=== PATIENT | female | born 1945 | race Caucasian/White ===

== ENCOUNTER 2018-12-27 15:48 | Observation (INO) | payer MEDICARE ==
[~2018-12-27] VITALS: Ht 180.3 cm; Wt 72.7 kg
[2018-12-27 16:57] LABS: BASOPHILS % 0.3 % (0.0-1.0); EOSINOPHILS % 0.4 % (0.0-6.0); LYMPHOCYTES # (AUTO) 1.4 (1.0-3.2); LYMPHOCYTES % 12.7 % (18.0-39.1); MEAN CORPUSCULAR HEMOGLOBIN 35.8 pg (28-32); MEAN CORPUSCULAR HGB CONC 29.5 g/dL (31-35); MEAN CORPUSCULAR VOLUME 121.2 fL (81-99); MONOCYTES # (AUTO) 0.7 (0.2-0.8); MONOCYTES % 6.2 % (4.4-11.3); NEUTROPHILS # (AUTO) 8.4 (2.1-6.9); NEUTROPHILS % 79.6 % (38.7-80.0); PLATELET COUNT 371 x10e3/uL (140-360); RED BLOOD COUNT 1.65 x10e6/uL (3.6-5.1); RED CELL DISTRIBUTION WIDTH 16.1 % (11.7-14.4)
[2018-12-27 17:00] LABS: HEMOGLOBIN 5.9 g/dL (12.0-16.0)
[2018-12-27 17:09] LABS: INR 0.98; PARTIAL THROMBOPLASTIN TIME 26.9 seconds (23.8-35.5); PROTHROMBIN TIME 13.5 seconds (11.9-14.5)
[2018-12-27] MEDS ORDERED: SODIUM CHLORIDE 0.9% 250ML 250 ML IV ONE (17:15)
[2018-12-27 17:18] LABS: BILIRUBIN,URINE NEGATIVE (NEGATIVE); CLARITY,URINE CLEAR (CLEAR); COLOR,URINE YELLOW (YELLOW); KETONES,URINE NEGATIVE (NEGATIVE); LEUKOCYTE ESTERASE ,URINE TRACE (NEGATIVE); NITRITE,URINE POSITIVE (NEGATIVE); PROTEIN,URINE DIPSTICK NEGATIVE (NEGATIVE); URINE UROBILINOGEN 0.2 mg/dL (0.2 - 1)
[2018-12-27 17:18] LABS: ALANINE AMINOTRANSFERASE 12 IU/L (0-55); ALBUMIN 2.9 g/dL (3.5-5.0); ALBUMIN/GLOBULIN RATIO 1.1 (0.8-2.0); ALKALINE PHOSPHATASE 35 IU/L (40-150); ANION GAP 11.3 mmol/L (8-16); BLOOD UREA NITROGEN 21 mg/dL (7-26); BUN/CREATININE RATIO 26 (6-25); CALCIUM 8.6 mg/dL (8.4-10.2); CARBON DIOXIDE 24 mmol/L (22-29); CHLORIDE 108 mmol/L (98-107); CREATININE, SERUM 0.82 mg/dL (0.57-1.11); EST GLOMERULAR FILTRATION RATE > 60 ML/MIN (60-); GLUCOSE 128 mg/dL (74-118); POTASSIUM 4.3 mmol/L (3.5-5.1); SODIUM 139 mmol/L (136-145)
[2018-12-27 17:35] LABS: BACTERIA,URINE MANY /HPF; EPITHELIAL CELLS,URINE FEW /LPF; WBC,URINE (MAN) 0-5 /HPF (0-5)
[2018-12-27 17:36] LABS: CREATINE KINASE MB 3.3 ng/mL (0-5.0)
--- NOTE | 2018-12-27 18:30 | NUR ---
pt signed consent for blood transfusion
[2018-12-27] MEDS: PANTOPRAZOLE INJ 40 MG in SODIUM CHLORIDE 0.9% 50ML 50 ML IV SCH ×2 (18:54→23:53)
[2018-12-27] MEDS: SODIUM CHLORIDE 0.9% 1000ML 1,000 ML IV SCH (18:54)
[2018-12-27] MEDS ORDERED: SODIUM CHLORIDE 0.9% 250ML 250 ML ONE (20:21)
[2018-12-27] MEDS ORDERED: FERROUS SULFAT325 MG PO (20:52)
[2018-12-27] MEDS ORDERED: SIMVASTATIN20 MG PO (20:52)
[2018-12-27] MEDS ORDERED: VITAMIN D31000 UNIT PO (20:52)
[2018-12-27] MEDS ORDERED: MELATONIN3 M1 PO (20:52)
[2018-12-27] MEDS ORDERED: PLAVIX75 MG PO (20:52)
[2018-12-27] MEDS ORDERED: AMLODIPINE BES2.5 MG PO (20:52)
[2018-12-27] MEDS ORDERED: ASPIR 8181 MG PO (20:52)
[2018-12-27] MEDS ORDERED: FENOFIBRATE PO (20:52)
[2018-12-27] MEDS ORDERED: LOSARTAN POTASS50 MG PO (20:52)
--- NOTE | 2018-12-27 22:35 | NUR ---
RECEIVED PT TO UNIT ROOM 213 VIA STRETCHER AT THIS TIME.PT AAO X 3.PT AMBULATED TO BED FROM STRETCHER WITHOUT ANY DIFFICULTY.RESPIRATIONS EVEN/NON LABORED.PT HAS 2 IV'S TO BILATERAL AC 20G.FIRST UNIT OF BLOOD TRANSFUSING AT THIS TIME AT 125ML/HR.NO S/S OF ADVERSE REACTION NOTED.DAUGHTER AT BEDSIDE.INSTRUCTED PT TO CALL FOR ASSISTANCE NEEDED BY PRESSING CALL LIGHT.PT VERBALIZED UNDERSTANDING CALL LIGHT WITHIN EASY REACH.
[2018-12-27 23:02] VITALS: BP 118/55
[2018-12-27] MEDS ORDERED: PANTOPRAZOLE 40 MG 10ML VIAL ONE (23:53)
[2018-12-27] MEDS ORDERED: SODIUM CHLORIDE 0.9% 50ML 50 ML ONE (23:54)
[2018-12-28] VITALS (8 sets, daily range): BP systolic 102–163; BP diastolic 55–82
--- NOTE | 2018-12-28 01:19 | NUR ---
DR Annmarie MALHOTRA IN UNIT SAW PT.NOTIFIED DR MALHOTRA THAT PT TAKES ASPIRIN AND PLAVIX AND THAT LAST DOSE WAS TAKEN YESTERDAY AROUND NOON ACCORDING TO PT.
[2018-12-28] MEDS ORDERED: SODIUM CHLORIDE 0.9% 250ML 250 ML ONE (02:07)
--- NOTE | 2018-12-28 02:45 | NUR ---
PT RESTING IN BED WITH NO S/S OF DISTRESS.RESPIRATIONS EVEN/NON LABORED.ORDER AND CONSENT FORM FOR BLOOD TRANSFUSION VERIFIED.BEDSIDE VERIFICATION DONE WITH JUANJOSE BOOTH.SECOND UNIT OF BLOOD STARTED.STAYED WITH THE PT FOR 15 MINUTES.NO S/S OF ADVERSE REACTION NOTED/REPORTED.DAUGHTER AT BEDSIDE.INSTRUCTED PT TO CALL FOR ASSISTANCE NEEDED BY PRESSING CALL LIGHT.PT VERBALIZED UNDERSTANDING.CALL LIGHT WITHIN EASY REACH.
[2018-12-28] MEDS ORDERED: PANTOPRAZOLE 40 MG 10ML VIAL ONE ×4 (04:51→20:53)
[2018-12-28] MEDS: PANTOPRAZOLE INJ 40 MG in SODIUM CHLORIDE 0.9% 50ML 50 ML IV SCH ×4 (04:53→20:00)
[2018-12-28] MEDS ORDERED: SODIUM CHLORIDE 0.9% 50ML 50 ML ONE ×4 (04:53→20:54)
--- NOTE | 2018-12-28 06:51 | NUR ---
H&P cc: fatigue HPI: 73yoF, PCP , developed severe fatigue and weakness. Pt has also been having black stool in form of diarrhea for weeks. No abdominal pain. PMH: CAD, carotid stenosis s/p right carotid stent, CIg use, peripheral edema, PVD, PShx: cholecystectomyu, right carotid stent Allergies; see emr Fh/SH; ; 1ppd cigs; no eoth meds; see MAR ROS: no f/c/s/N/V/ALEJANDRO/cp/sob/skin rash/vision changes v/s; revd PE tired appearing anicteric ns1s2 mod bs soft nt nd skin dry Trace leg edema a&ox; howard labs/meds revd A/P: Severe anemia UTI HTN HLD Current smoker/Nicotine dependence Peripheral edema PLAN IV PPI Hold asa/plavix; GI consult Grupo Pérez MD, PhD.
[2018-12-28] MEDS ORDERED: MELATONIN 3 MG TAB PO PRN (07:00)
--- NOTE | 2018-12-28 07:00 | NUR ---
BEDSIDE SHIFT REPORT RECEIVED FROM THE WAITER/WAITRESS CAFETERIA RN. PT DENIES NEEDS AT THIS TIME.
--- NOTE | 2018-12-28 07:30 | NUR ---
BEDSIDE SHIFT REPORT GIVEN TO ONCOMING NURSE.PT RESTING IN BED WITH NO S/S OF DISTRESS.DAUGHTER AT BEDSIDE.CALL LIGHT WITHIN EASY REACH.
--- NOTE | 2018-12-28 08:00 | NUR ---
PT IS ON NPO FOR EGD. DENIES NEEDS AT THIS TIME.
[2018-12-28 08:03] LABS: BASOPHILS # (AUTO) 0.1 (0.0-0.1); BASOPHILS % 0.8 % (0.0-1.0); EOSINOPHILS # (AUTO) 0.1 (0.0-0.4); EOSINOPHILS % 1.6 % (0.0-6.0); HEMATOCRIT 26.3 % (34.2-44.1); HEMOGLOBIN 8.2 g/dL (12.0-16.0); LYMPHOCYTES # (AUTO) 1.3 (1.0-3.2); LYMPHOCYTES % 20.9 % (18.0-39.1); MEAN CORPUSCULAR HEMOGLOBIN 32.9 pg (28-32); MEAN CORPUSCULAR HGB CONC 31.2 g/dL (31-35); MEAN CORPUSCULAR VOLUME 105.6 fL (81-99); MONOCYTES # (AUTO) 0.5 (0.2-0.8); MONOCYTES % 8.7 % (4.4-11.3); NEUTROPHILS # (AUTO) 4.1 (2.1-6.9); PLATELET COUNT 278 x10e3/uL (140-360); RED BLOOD COUNT 2.49 x10e6/uL (3.6-5.1); RED CELL DISTRIBUTION WIDTH 21.3 % (11.7-14.4)
[2018-12-28 08:19] LABS: ANION GAP 12.7 mmol/L (8-16); BLOOD UREA NITROGEN 17 mg/dL (7-26); BUN/CREATININE RATIO 20 (6-25); CALCIUM 8.4 mg/dL (8.4-10.2); CARBON DIOXIDE 21 mmol/L (22-29); CHLORIDE 112 mmol/L (98-107); CREATININE, SERUM 0.84 mg/dL (0.57-1.11); EST GLOMERULAR FILTRATION RATE > 60 ML/MIN (60-); GLUCOSE 92 mg/dL (74-118); POTASSIUM 3.7 mmol/L (3.5-5.1); SODIUM 142 mmol/L (136-145)
[2018-12-28 08:38] LABS: CHOL/HDL RATIO 3.7 (3.0-3.6)
[2018-12-28 08:57] LABS: FERRITIN 54.38 ng/mL (4.63-204.00)
[2018-12-28 09:10] LABS: FOLATE 14.6 ng/mL (7.0-15.4)
--- NOTE | 2018-12-28 11:29 | NUR ---
PT REFUSED SCD'S. PT IS AMBULATIVE
--- NOTE | 2018-12-28 13:53 | NUR ---
PT OFF UNIT FOR PROCEDURE IN SAFE CONDITION.
[2018-12-28] MEDS: SODIUM CHLORIDE 0.9% 1000ML 1,000 ML IV SCH (14:21)
--- NOTE | 2018-12-28 15:30 | NUR ---
PT BACK TO UNIT AFTER PROCEDURE.
--- NOTE | 2018-12-28 15:35 | NUR ---
CALL FROM DR. MALHOTRA. PT MIGHT NEED COLONOSCOPY BUT NOT CONFIRMED YET. WILL CONFIRM LATER AFTER DISCUSSING WITH CASE MANAGEMENT.
--- NOTE | 2018-12-28 15:44 | NUR ---
Spoke to Dr. Annmarie Moreira, who states that colonoscopy can be scheduled as an outpatient, if Dr. Pérez feels comfortable with discharging pt today. CM attempted to call Dr. Pérez and phone went to voicemail. CM left message for MD to call back.
[2018-12-28] MEDS ORDERED: CYANOCOBALAMIN INJ 1,000 MCG/ML VIAL IM ONE (16:00)
--- NOTE | 2018-12-28 16:30 | NUR ---
Spoke to Dr. Pérez. He states he does not feel comfortable sending pt home today. Wants to check H/H today and CBC, BMP tomorrow morning. Orders placed in system. Dr. Pérez will reassess when he sees pt tomorrow morning. Gave order for observation status. Dr. Annmarie Moreira was updated on plan. He states will proceed with colonoscopy tomorrow. EMMY Valdez updated on plan as well.
--- NOTE | 2018-12-28 17:00 | NUR ---
PAGED DR. MALHOTRA REGARDING COLONOSCOPY. PER THE DR, START GOLYTELY FOR COLONOSCOPY, START NPO FROM MIDNIGHT AND COMPLETE INFORMED CONSENT
--- NOTE | 2018-12-28 17:03 | Operative Report ---
DATE OF PROCEDURE: 12/28/2018 SURGEON: Kd Moreira MD PROCEDURE: EGD with biopsies. INDICATIONS FOR EGD: Anemia, history of melena. MEDICATIONS: The patient was done under MAC, please see anesthesiologist's note. PROCEDURE IN DETAIL: With the patient in left lateral decubitus position, a flexible fiberoptic Olympus gastroscope was introduced into the esophagus under direct visualization without any difficulty. There was some patchy erythema noted in distal esophagus. The scope was then advanced with ease into the stomach traversing a small sliding hiatal hernia. Mucosa overlying the antrum and the body revealed some diffuse erythema and moderate edema, and biopsies were obtained and sent to stain for H. pylori. Pylorus was of normal contour and shape, it was intubated with ease and the scope was advanced all the way to the second portion of the duodenum. The scope was then withdrawn slowly, mucosa overlying the proximal second portion and duodenal bulb grossly appeared to be within normal limits. The scope was then withdrawn back into the stomach and retroflexed and mucosa overlying the fundus and the cardia appeared to be within normal limits. The scope was then straightened out, it was subsequently withdrawn, and the patient tolerated the procedure well. IMPRESSION: 1. Distal esophagitis, mild. 2. Small sliding hiatal hernia. 3. Gastritis, biopsied, biopsies sent to stain for Helicobacter pylori. PLAN: Follow up histology. Continue Protonix 40 mg one p.o. q.a.m. before meals. Findings do not necessarily explain the patient's anemia. The patient will need a colonoscopy. Kd Moreira MD [facility] [place] [place][id number] cc: Grupo Pérez MD
[2018-12-28 17:14] LABS: HEMATOCRIT 25.2 % (34.2-44.1); HEMOGLOBIN 7.9 g/dL (12.0-16.0)
[2018-12-28] MEDS ORDERED: PEG (High)/E-LYTE SOLN 4,000 ML BTL PO ONE (17:15)
[2018-12-28] MEDS: FERROUS SULFATE 325 MG TAB PO SCH (18:01)
[2018-12-28] MEDS: FENOFIBRATE 145 MG TAB PO SCH (18:05)
[2018-12-28] MEDS: AMLODIPINE BESYLATE 5 MG TAB PO SCH (18:05)
[2018-12-28] MEDS: SIMVASTATIN 20 MG TAB PO SCH (18:05)
[2018-12-28] MEDS ORDERED: PROPOFOL IV EMULSION 10 MG/ML 50 ML VIAL ONE (18:39)
--- NOTE | 2018-12-28 19:00 | NUR ---
BEDSIDE SHIFT REPORT GIVEN TO THE [employer] RN. PT DENIED FURTHER NEEDS.
[2018-12-29] VITALS (8 sets, daily range): BP systolic 109–145; BP diastolic 50–69
[2018-12-29] MEDS ORDERED: SODIUM CHLORIDE 0.9% 50ML 50 ML ONE ×4 (01:44→15:28)
[2018-12-29] MEDS ORDERED: PANTOPRAZOLE 40 MG 10ML VIAL ONE ×3 (01:44→08:10)
[2018-12-29] MEDS: PANTOPRAZOLE INJ 40 MG in SODIUM CHLORIDE 0.9% 50ML 50 ML IV SCH ×4 (01:46→15:33)
[2018-12-29] MEDS: SODIUM CHLORIDE 0.9% 1000ML 1,000 ML IV SCH (03:18)
[2018-12-29 06:06] LABS: BASOPHILS % 0.6 % (0.0-1.0); EOSINOPHILS # (AUTO) 0.1 (0.0-0.4); EOSINOPHILS % 2.7 % (0.0-6.0); HEMATOCRIT 23.7 % (34.2-44.1); HEMOGLOBIN 7.5 g/dL (12.0-16.0); LYMPHOCYTES % 19.4 % (18.0-39.1); MEAN CORPUSCULAR HEMOGLOBIN 34.1 pg (28-32); MEAN CORPUSCULAR HGB CONC 31.6 g/dL (31-35); MEAN CORPUSCULAR VOLUME 107.7 fL (81-99); MONOCYTES # (AUTO) 0.6 (0.2-0.8); MONOCYTES % 11.2 % (4.4-11.3); NEUTROPHILS # (AUTO) 3.3 (2.1-6.9); NEUTROPHILS % 63.9 % (38.7-80.0); PLATELET COUNT 244 x10e3/uL (140-360); RED CELL DISTRIBUTION WIDTH 21.4 % (11.7-14.4)
[2018-12-29 07:04] LABS: ANION GAP 13.1 mmol/L (8-16); BLOOD UREA NITROGEN 13 mg/dL (7-26); BUN/CREATININE RATIO 16 (6-25); CARBON DIOXIDE 22 mmol/L (22-29); CHLORIDE 113 mmol/L (98-107); CREATININE, SERUM 0.83 mg/dL (0.57-1.11); EST GLOMERULAR FILTRATION RATE > 60 ML/MIN (60-); GLUCOSE 78 mg/dL (74-118); POTASSIUM 3.1 mmol/L (3.5-5.1); SODIUM 145 mmol/L (136-145)
--- NOTE | 2018-12-29 07:45 | NUR ---
Paged to notify [facility] 7.5 [id number]. Waiting for call back
--- NOTE | 2018-12-29 08:11 | NUR ---
D/C summary Principal Dx: Internal hemorrhoids Diverticulosis Severe anemia UTI HTN HLD Current smoker/Nicotine dependence Peripheral edema PLAN IV PPI Hold asa/plavix; GI consult 12/29 VitB12 deficiency anemia- give B12 shots and pill. F/u colonoscopy/EGD. GNR UTI. d/c home f/u pcp 1 week and GI 2 weeks stable d/c>35mins Grupo Pérez MD, PhD.
[2018-12-29] MEDS ORDERED: POTASSIUM CHLORIDE 20MEQ/100ML 100 ML IV ONE (08:30)
[2018-12-29] MEDS: AMLODIPINE BESYLATE 5 MG TAB PO SCH (09:00)
[2018-12-29] MEDS: FERROUS SULFATE 325 MG TAB PO SCH (09:00)
[2018-12-29] MEDS ORDERED: CYANOCOBALAMIN 1,000 MCG TAB PO SCH (09:00)
[2018-12-29] MEDS: FENOFIBRATE 145 MG TAB PO SCH (09:00)
[2018-12-29] MEDS ORDERED: CYANOCOBALAMIN INJ 1,000 MCG/ML VIAL IM SCH (09:00)
[2018-12-29] MEDS: SIMVASTATIN 20 MG TAB PO SCH (09:00)
--- NOTE | 2018-12-29 09:24 | NUR ---
Spoke to Dr. Pérez regarding DC plan. States pt having colonoscopy today. Will recheck H/H at 1600. If stable and colonoscopy negative, pt can discharge home.
[2018-12-29 09:56] LABS: EOSINOPHILS % (MANUAL) 2 % (0-7); LYMPHOCYTES % (MANUAL) 20 % (19-48); MONOCYTES % (MANUAL) 12 % (3.4-9.0); NEUTROPHILS % (MANUAL) 66 % (40-74); PLATELET ESTIMATE ADEQUATE; RBC MORPHOLOGY COMMENT NORMAL
[2018-12-29] MEDS ORDERED: VITAMIN B-121000 MCG PO (12:05)
[2018-12-29] MEDS ORDERED: PANTOPRAZOLE SO40 MG PO (12:05)
[2018-12-29] MEDS ORDERED: FENTANYL CITRATE/PF 100MCG/2 ML INJ ONE (14:27)
[2018-12-29] MEDS ORDERED: PROPOFOL IV EMULSION 10 MG/ML 50 ML VIAL ONE (14:55)
[2018-12-29] MEDS ORDERED: GLUCAGON FOR INJ 1 MG VIAL ONE (14:55)
[2018-12-29 17:26] LABS: HEMATOCRIT 28.6 % (34.2-44.1); HEMOGLOBIN 8.6 g/dL (12.0-16.0)
--- NOTE | 2018-12-29 17:52 | NUR ---
Taken for procedure. No s/s of acute distress noted.
--- NOTE | 2018-12-29 17:53 | NUR ---
aware of urine culture results. See orders
--- NOTE | 2018-12-29 19:30 | NUR ---
PATIENT RECEIVED FROM RECOVERY. PATIENT IS AAOX3, RESP EVEN AND UNLABORED. NO ACUTE DISTRESS NOTED. VITAL SIGN STABLE AT THIS TIME. TELE IN PLACE. FAMILY AT BED SIDE. CONTINUE TO MONITOR CLOSELY
--- NOTE | 2018-12-29 19:36 | NUR ---
Report given to oncoming nurse of patient's status. Aware of doctor's discharge orders. Patient having colonoscopy at this time.
[2018-12-29] MEDS ORDERED: PANTOPRAZOL 40MG/SOD CHL 0.9% 50 ML IV SCH (19:45)
[2018-12-29] MEDS ORDERED: CEFTRIAXONE SOD 1 GM/NS 50 ML 50 ML IV ONE (20:30)
--- NOTE | 2018-12-29 20:30 | NUR ---
SPOKE TO DR HINOJOSA ABOUT COLONOSCOPY RESULT AND PHARMACY INFO
[2018-12-29] MEDS ORDERED: CEFTRIAXONE SOD 1 GM/NS 50 ML 50 ML IV SCH (21:00)
[2018-12-29] MEDS ORDERED: SIMVASTATIN 20 MG TAB PO SCH (21:00)
--- NOTE | 2018-12-29 21:45 | NUR ---
DISCHARGE PATIENT HOME WITH ALL BELONGINGS. VITAL SIGN STABLE AT THIS TIME.
--- NOTE | 2018-12-30 01:06 | Operative Report ---
DATE OF PROCEDURE: 12/29/2018 SURGEON: Kd Moreira MD INDICATION FOR COLONOSCOPY: Anemia, history of colon polyps. MEDICATIONS: The patient was done under MAC, please see anesthesiologist's note. PROCEDURE IN DETAIL: With the patient in left lateral decubitus position, a flexible fiberoptic Olympus colonoscope was inserted into the rectum with ease and advanced all the way to the cecum. Scattered diverticular disease was noted, was more prominent in the left colon other than that the colon was somewhat spastic and irritable, but grossly unremarkable. The scope was retroflexed into the distal rectum and small internal hemorrhoids were noted, none of which was actively bleeding. The scope was then straightened out, it was subsequently withdrawn. The patient tolerated the procedure well. IMPRESSION: 1. Diverticulosis. 2. Internal hemorrhoids, none actively bleeding. PLAN: Initiate high-fiber, low-fat diet. Initiate high-fiber supplement. The patient might benefit from a followup colonoscopy in 3 to 5 years. Kd Moreira MD [facility] [place] [place][id number] cc: Grupo Pérez MD
== END 2018-12-29 21:45 | disposition home or self-care (01) ==
LOC: ER 15:48 → INTOOBSV 19:15 → ERHOLD 19:15 → MED/SURG2 22:30
PROVIDERS: ADMIT Internal Medicine; ATTEND Internal Medicine
DX: K57.30 Diverticulosis of large intestine without perforation or abscess without bleeding (principal); D51.9 Vitamin B12 deficiency anemia, unspecified; K20.9 Esophagitis, unspecified; K44.9 Diaphragmatic hernia without obstruction or gangrene; K29.70 Gastritis, unspecified, without bleeding; N39.0 Urinary tract infection, site not specified; E78.5 Hyperlipidemia, unspecified; I10 Essential (primary) hypertension; F17.210 Nicotine dependence, cigarettes, uncomplicated; I25.10 Atherosclerotic heart disease of native coronary artery without angina pectoris; I73.9 Peripheral vascular disease, unspecified; I65.21 Occlusion and stenosis of right carotid artery; Z95.828 Presence of other vascular implants and grafts; K64.8 Other hemorrhoids; B96.20 Unspecified Escherichia coli [E. coli] as the cause of diseases classified elsewhere; J44.9 Chronic obstructive pulmonary disease, unspecified
CPT/HCPCS: 36415 ×3; 36430; 43239; 45378; 80048 ×2; 80053; 80061; 81001; 82550; 82553; 82607; 82728; 82746; 83540; 84132; 84466; 84484; 85014 ×2; 85018 ×2; 85025 ×3; 85045; 85610; 85730; 86850; 86900; 86920; 87086; 87186; 88305; 88312; 93005; 99284; C9113 ×3; G0378 ×3; J0696; J1610; J2704 ×2; J3010; J3420 ×2; J3480; J7030 ×2; J7050 ×2; P9016 ×2

== ENCOUNTER 2020-02-20 12:05 | Observation (INO) | payer MEDICARE ==
[~2020-02-20] VITALS: Ht 152.4 cm; Wt 70.1 kg
[~2020-02-20 12:05] MED LIST: AMLODIPINE BES2.5 MG PO; ASPIR 8181 MG PO; FENOFIBRATE PO; FERROUS SULFAT325 MG PO; LOSARTAN POTASS50 MG PO; MELATONIN3 M1 PO; PANTOPRAZOLE SO40 MG PO; PLAVIX75 MG PO; SIMVASTATIN20 MG PO; VITAMIN B-121000 MCG PO; VITAMIN D31000 UNIT PO
[2020-02-20] MEDS ORDERED: PLAVIX75 MG PO (12:36)
[2020-02-20] MEDS ORDERED: SODIUM CHLORIDE 0.9% 1000ML 1,000 ML IV STA (13:00)
[2020-02-20] MEDS ORDERED: PANTOPRAZOLE 40 MG 10ML VIAL IV STA (13:00)
[2020-02-20 13:09] LABS: BASOPHILS % 0.6 % (0.0-1.0); EOSINOPHILS # (AUTO) 0.1 (0.0-0.4); EOSINOPHILS % 0.9 % (0.0-6.0); HEMATOCRIT 29.3 % (34.2-44.1); LYMPHOCYTES # (AUTO) 0.9 (1.0-3.2); LYMPHOCYTES % 13.4 % (18.0-39.1); MEAN CORPUSCULAR HEMOGLOBIN 33.3 pg (28-32); MEAN CORPUSCULAR HGB CONC 30.7 g/dL (31-35); MEAN CORPUSCULAR VOLUME 108.5 fL (81-99); MONOCYTES # (AUTO) 0.5 (0.2-0.8); MONOCYTES % 7.4 % (4.4-11.3); NEUTROPHILS # (AUTO) 5.3 (2.1-6.9); PLATELET COUNT 309 x10e3/uL (140-360); RED CELL DISTRIBUTION WIDTH 14.3 % (11.7-14.4)
[2020-02-20 13:13] LABS: INR 0.92; PROTHROMBIN TIME 12.8 seconds (11.9-14.5)
[2020-02-20 13:14] LABS: PARTIAL THROMBOPLASTIN TIME 27.6 seconds (23.8-35.5)
[2020-02-20 13:21] LABS: ALANINE AMINOTRANSFERASE 12 IU/L (0-55); ALBUMIN 3.8 g/dL (3.5-5.0); ALBUMIN/GLOBULIN RATIO 1.2 (0.8-2.0); ALKALINE PHOSPHATASE 39 IU/L (40-150); ANION GAP 11.5 mmol/L (8-16); BLOOD UREA NITROGEN 15 mg/dL (7-26); BUN/CREATININE RATIO 19 (6-25); CALCIUM 8.8 mg/dL (8.4-10.2); CARBON DIOXIDE 26 mmol/L (22-29); CHLORIDE 107 mmol/L (98-107); CREATININE, SERUM 0.78 mg/dL (0.57-1.11); EST GLOMERULAR FILTRATION RATE > 60 ML/MIN (60-); GLUCOSE 105 mg/dL (74-118); POTASSIUM 3.5 mmol/L (3.5-5.1); SODIUM 141 mmol/L (136-145)
[2020-02-20] MEDS ORDERED: SODIUM CHLORIDE 0.9% 1000ML 1,000 ML ONE (13:27)
--- NOTE | 2020-02-20 13:53 | Emergency Department Note ---
History of Present Illnes History of Present Illness Chief Complaint: General Medicine Complaints History of Present Illness This is a 74 year old female Patient in from home with reports of weakness and dark/maroon diarrhea off and on over the last 2 weeks. Patient has a history of GI bleed and has required blood transfusion. Patient reports that she doesn't feel as bad as she did the last time she was here with the GI bleed but feels weak. Patient does appear to be weak but not overly pale. . Historian: Patient Arrival Mode: Car Pet[employer] Inspector Supervisor Required: No Onset (how long ago): week(s) Location: DARK STOOLS Radiation: Reports non-radiation Severity: moderate Onset quality: gradual Timing of current episode: intermittent Progression: waxing and waning Chronicity: recurrent Context: Denies recent illness Relieving factors: none Exacerbating factors: none Associated symptoms: Reports denies other symptoms Past Medical/Family History Physician Review I have reviewed the patient's past medical and family history. Any updates have been documented here. Past Medical History Recent Fever: No Clinical Suspicion of Infectio: No New/Unexplained Change in Ment: No Past Medical History: Hypertension, COPD, CAD, Anemia, Hyperlipedemia Other Medical History: CRONHS DISEASE Past Surgical History: Cholecysctectomy Other Surgery: RIGHT CAROTID STENT PLACEMENT Social History Smoking Cessation: Never Smoker Counseling Performed: No Alcohol Use: None Any Illegal Drug Use: No TB Exposure/Symptoms: No Physically hurt or threatened: No Family History Family history of heart diseas: No Other Any Pre-Existing Lines (PICC,: No Review of Systems Review of Systems Constitutional: Reports no symptoms EENTM: Reports no symptoms Cardiovascular: Reports no symptoms Respiratory: Reports no symptoms Gastrointestinal: Reports as per HPI Genitourinary: Reports no symptoms Musculoskeletal: Reports no symptoms Integumentary: Reports no symptoms Neurological: Reports no symptoms Psychological: Reports no symptoms Endocrine: Reports no symptoms Hematological/Lymphatic: Reports no symptoms Physical Exam Related Data Allergies: Coded Allergies: No Known Allergies (Unverified , 12/27/18) Triage Vital Signs Vital Signs Date Time Temp Pulse Resp B/P (MAP) Pulse Ox O2 Delivery O2 Flow Rate FiO2 02/20/20 12:25 98.6 78 18 167/58 100 Room Air Vital signs reviewed: Yes Physical Exam CONSTITUTIONAL Constitutional: Present well-developed, Present well-nourished HENT HENT: Present normocephalic, Present atraumatic, Present oropharynx clear/moist, Present nose normal HENT L/R: Present left ext ear normal, Present right ext ear normal EYES Eyes: Reports PERRL, Reports conjunctivae normal NECK Neck: Present ROM normal PULMONARY Pulmonary: Present effort normal, Present breath sounds normal CARDIOVASCULAR Cardiovascular: Present regular rhythm, Present heart sounds normal, Present capillary refill normal, Present normal rate GASTROINTESTINAL Abdominal: Present soft, Present nontender, Present bowel sounds normal GENITOURINARY Genitourinary: Present exam deferred SKIN Skin: Present warm, Present dry MUSCULOSKELETAL Musculoskeletal: Present ROM normal NEUROLOGICAL Neurological: Present alert, Present oriented x 3, Present no gross motor or sensory deficits PSYCHOLOGICAL Psychological: Present mood/affect normal, Present judgement normal Results Laboratory Result Diagram: 02/20/20 1220 02/20/20 1220 Laboratory Laboratory Tests Test 02/20/20 12:20 White Blood Count 6.85 x10e3/uL (4.8-10.8) Red Blood Count 2.70 x10e6/uL (3.6-5.1) Hemoglobin 9.0 g/dL (12.0-16.0) Hematocrit 29.3 % (34.2-44.1) Mean Corpuscular Volume 108.5 fL (81-99) Mean Corpuscular Hemoglobin 33.3 pg (28-32) Mean Corpuscular Hemoglobin Concent 30.7 g/dL (31-35) Red Cell Distribution Width 14.3 % (11.7-14.4) Platelet Count 309 x10e3/uL (140-360) Neutrophils (%) (Auto) 77.0 % (38.7-80.0) Lymphocytes (%) (Auto) 13.4 % (18.0-39.1) Monocytes (%) (Auto) 7.4 % (4.4-11.3) Eosinophils (%) (Auto) 0.9 % (0.0-6.0) Basophils (%) (Auto) 0.6 % (0.0-1.0) Neutrophils # (Auto) 5.3 (2.1-6.9) Lymphocytes # (Auto) 0.9 (1.0-3.2) Monocytes # (Auto) 0.5 (0.2-0.8) Eosinophils # (Auto) 0.1 (0.0-0.4) Basophils # (Auto) 0.0 (0.0-0.1) Absolute Immature Granulocyte (auto 0.05 x10e3/uL (0-0.1) Prothrombin Time 12.8 seconds (11.9-14.5) Prothromb Time International Ratio 0.92 Activated Partial Thromboplast Time 27.6 seconds (23.8-35.5) Sodium Level 141 mmol/L (136-145) Potassium Level 3.5 mmol/L (3.5-5.1) Chloride Level 107 mmol/L (98-107) Carbon Dioxide Level 26 mmol/L (22-29) Anion Gap 11.5 mmol/L (8-16) Blood Urea Nitrogen 15 mg/dL (7-26) Creatinine 0.78 mg/dL (0.57-1.11) Estimat Glomerular Filtration Rate > 60 ML/MIN (60-) BUN/Creatinine Ratio 19 (6-25) Glucose Level 105 mg/dL (74-118) Calcium Level 8.8 mg/dL (8.4-10.2) Total Bilirubin 0.2 mg/dL (0.2-1.2) Aspartate Amino Transf (AST/SGOT) 17 IU/L (5-34) Alanine Aminotransferase (ALT/SGPT) 12 IU/L (0-55) Alkaline Phosphatase 39 IU/L (40-150) Total Protein 7.0 g/dL (6.5-8.1) Albumin 3.8 g/dL (3.5-5.0) Globulin 3.2 g/dL (2.3-3.5) Albumin/Globulin Ratio 1.2 (0.8-2.0) Lab results reviewed: Yes Assessment & Plan Medical Decision Making MDM DARK STOOLS - CBC, CHEM, PT/PTT, T&S - EVAL ANEMIA, GI BLEED Reassessment Reassessment ADMIT DR HINOJOSA ([facility]) Assessment & Plan Final Impression: (1) GI bleed Depart Disposition: ADMITTED Last Vital Signs Date Time Temp Pulse Resp B/P (MAP) Pulse Ox O2 Delivery O2 Flow Rate FiO2 02/20/20 12:54 98.5 72 16 147/62 99 Room Air Home Meds Active Scripts Pantoprazole Sodium* (PROTONIX) 40 Mg Tablet., 40 MG PO DAILY for 30 Days, TAB Prov:СЕРГЕЙ HINOJOSA MD 12/29/18 Cyanocobalamin (VITAMIN B-12) 1,000 Mcg Tab, 1000 MCG PO DAILY for 30 Days, TAB Prov:СЕРГЕЙ HINOJOSA MD 12/29/18 Reported Medications Clopidogrel Bisulfate* (PLAVIX) 75 Mg Tablet, 75 MG PO DAILY, #30 TAB 02/20/20 Simvastatin (SIMVASTATIN) 20 Mg Tablet, 20 MG PO DAILY 12/27/18 [Fenofibrate] 130 MG No Conflict Check, 130 MG PO DAILY 12/27/18 Ferrous Sulfate (FERROUS SULFATE) 325 Mg Tablet, 325 MG PO DAILY 12/27/18 Melatonin (MELATONIN) 3 Mg Tablet.er, 3 MG PO HS PRN for SLEEP 12/27/18 Cholecalciferol (Vitamin D3) (VITAMIN D3) 1,000 Unit Capsule, 1000 UNITS PO DAILY 12/27/18 Losartan Potassium (LOSARTAN POTASSIUM) 50 Mg Tablet, 50 MG PO DAILY 12/27/18 Amlodipine Besylate (AMLODIPINE BESYLATE) 2.5 Mg Tablet, 2.5 MG PO DAILY 12/27/18 Medications in the ED Pantoprazole Sodium 40 mg ONCE STAT IV ; Start 02/20/20 at 13:00; Stop 02/20/20 at 13:19; Status DC Sodium Chloride 1,000 ml @ 0 mls/hr Q0M STAT IV ; Start 02/20/20 at 13:00; Stop 02/20/20 at 13:19; Status DC Sodium Chloride 1,000 ml @ ud STK-MED ONCE .ROUTE ; Start 02/20/20 at 13:27; Stop 02/20/20 at 13:20; Status DC NAM RIDER MD Feb 20, 2020 13:53
[2020-02-20 14:39] LABS: BILIRUBIN,URINE NEGATIVE (NEGATIVE); CLARITY,URINE CLEAR (CLEAR); COLOR,URINE YELLOW (YELLOW); KETONES,URINE NEGATIVE (NEGATIVE); LEUKOCYTE ESTERASE ,URINE NEGATIVE (NEGATIVE); NITRITE,URINE NEGATIVE (NEGATIVE); PROTEIN,URINE DIPSTICK NEGATIVE (NEGATIVE); URINE UROBILINOGEN 0.2 mg/dL (0.2 - 1)
[2020-02-20 14:44] LABS: EPITHELIAL CELLS,URINE RARE /LPF; RBC,URINE 0-5 /HPF (0-5); WBC,URINE (MAN) 0-5 /HPF (0-5)
[2020-02-20] MEDS: SODIUM CHLORIDE 0.9% 1000ML 1,000 ML IV SCH ×2 (15:08→17:47)
--- NOTE | 2020-02-20 16:15 | NUR ---
RECEIVED PATIENT FROM ER. ORIENTED PATIENT TO ROOM AND CALL LIGHT. VS STABLE. NO PAIN AT THIS TIME. TELEMETRY #16 SB. CALL LIGHT IN REACH WILL CONTINUE TO MONITOR.
[2020-02-20 17:07] VITALS: BP 133/51
[2020-02-20 17:16] VITALS: BP 133/51
[2020-02-20 17:20] VITALS: BP 133/61
[2020-02-20 17:51] LABS: BASOPHILS # (AUTO) 0.1 (0.0-0.1); BASOPHILS % 0.9 % (0.0-1.0); EOSINOPHILS # (AUTO) 0.1 (0.0-0.4); EOSINOPHILS % 0.9 % (0.0-6.0); HEMATOCRIT 25.9 % (34.2-44.1); HEMOGLOBIN 7.9 g/dL (12.0-16.0); LYMPHOCYTES # (AUTO) 1.5 (1.0-3.2); LYMPHOCYTES % 26.4 % (18.0-39.1); MEAN CORPUSCULAR HEMOGLOBIN 33.5 pg (28-32); MEAN CORPUSCULAR HGB CONC 30.5 g/dL (31-35); MEAN CORPUSCULAR VOLUME 109.7 fL (81-99); MONOCYTES # (AUTO) 0.5 (0.2-0.8); MONOCYTES % 7.7 % (4.4-11.3); NEUTROPHILS # (AUTO) 3.7 (2.1-6.9); NEUTROPHILS % 63.8 % (38.7-80.0); PLATELET COUNT 252 x10e3/uL (140-360); RED BLOOD COUNT 2.36 x10e6/uL (3.6-5.1); RED CELL DISTRIBUTION WIDTH 14.6 % (11.7-14.4)
--- NOTE | 2020-02-20 18:02 | NUR ---
Spoke with Dr. Pérez regarding new patient admit. New order for occult blood stool. Also notified Dr. Pérez regarding hgb drop from 9.0-7.9. New orders implemented.
--- NOTE | 2020-02-20 18:50 | NUR ---
H&P cc: fatigue HPI: 73yoF, PCP , developed black stool for 2 weeks. Pt does take clopidogrel for hx carotid stent. severe fatigue and weakness. PMH: CAD, carotid stenosis s/p right carotid stent, CIg use, peripheral edema, PVD, UTI, Diverticulosis, Internal hemorhoids, PShx: cholecystectomyu, right carotid stent Allergies; see emr Fh/SH; ; 1ppd cigs; no eoth meds; see MAR ROS: no f/c/s/N/V/ALEJANDRO/cp/sob/skin rash/vision changes v/s; revd PE tired appearing anicteric ns1s2 mod bs soft nt nd skin dry Trace leg edema a&ox; howard labs/meds revd A/P: Melena- IV PPI GIB- IV PPI Internal hemorrhoids Diverticulosis Macrocytic anemia- check panel Obesity BMI 30 Hx carotid stent>1 yr ago- hold clopidogrel. SCD; IV PPI Dispo: Grupo Pérez MD, PhD.
[2020-02-20] MEDS ORDERED: ACETAMINOPHEN 325 MG TAB PO PRN (19:00)
[2020-02-20] MEDS ORDERED: ONDANSETRON HCL INJ 2MG/ML 2ML 2 MG/ML VIAL IV PRN (19:00)
[2020-02-20 19:11] LABS: CHOL/HDL RATIO 2.9 (3.0-3.6)
[2020-02-20] MEDS ORDERED: SODIUM CHLORIDE 0.9% 100 ML ONE (19:13)
[2020-02-20] MEDS ORDERED: IOPAMIDOL 370 MG/ML 200 ML INFUS..BTL INJ ONE (19:15)
[2020-02-20 19:30] LABS: FERRITIN 39.34 ng/mL (4.63-204.00)
--- NOTE | 2020-02-20 19:42 | NUR ---
PATIENT C/O CHEST PRESSURE 4/10. NO ADVERSE SIGNS OR SYMPTOMS. STABLE VITAL SIGNS. SR PER TELE. Addendum: 02/20/20 at 2039 by Holley Alvarenga RN PLEASE DISREGARD THIS NOTE. MADE IN ERROR.
[2020-02-20 20:00] VITALS: BP 147/71
[2020-02-20] MEDS: PANTOPRAZOLE 40 MG 10ML VIAL IV SCH (20:07)
--- NOTE | 2020-02-20 20:40 | Diagnostic Imaging Report ---
EXAM: CTA Abdomen and Pelvis WITH contrast INDICATION: GI bleed. COMPARISON: None. TECHNIQUE: Abdomen and pelvis were scanned utilizing a multidetector helical scanner from the lung base to the pubic symphysis after administration of IV contrast. Coronal and sagittal reformations were obtained. Routine protocol was performed. Scan was performed when during portal venous phase. IV CONTRAST: 100 mL of Isovue 370 ORAL CONTRAST: None COMPLICATIONS: None RADIATION DOSE: Total DLP: 1168 mGy*cm Estimated effective dose: (DLP x 0.015 x size factor) mSv CTDIvol has been reviewed. It is below the limits set by the Radiation Protocol Committee (RPC). Dose modulation, iterative reconstruction, and/or weight based adjustment of the mA/kV was utilized to reduce the radiation dose to as low as reasonably achievable. FINDINGS: LINES and TUBES: None. LOWER THORAX: There is bibasilar atelectasis. Atherosclerotic calcification of the partially imaged coronary vessels. HEPATOBILIARY: No focal hepatic lesions. There is intra- and extra- hepatic biliary dilation likely post cholecystectomy reservoir effect. GALLBLADDER: Surgically absent. No wall thickening. SPLEEN: No splenomegaly. PANCREAS: No focal masses or ductal dilatation. ADRENALS: No adrenal nodules KIDNEYS/URETERS: Kidneys enhance symmetrically. No hydronephrosis. No cystic or solid mass lesions. No stones. GI TRACT: There is mucosal wall thickening and edema of the terminal ileum. No evidence of active GI bleeding identified. No abnormal distention, wall thickening, or evidence of bowel obstruction. There are diverticula within the colon without evidence of diverticulitis. Appendix is normal. PELVIC ORGANS/BLADDER: Unremarkable. LYMPH NODES: No lymphadenopathy. VASCULAR: There is moderate calcified and noncalcified atherosclerotic disease in the aorta and major arterial branches. No evidence of aortic aneurysm. Proximal abdominal aorta: 2.7 x 2.5 cm. Abdominal aorta at the level of the celiac trunk: 2.3 x 2.3 cm. Abdominal aorta at the level left renal artery: 1.8 x 1.7 cm. Abdominal aorta at the iliac bifurcation: 1.5 x 1.4 cm. Right external iliac artery: 0.7 x 0.6 cm. Left external iliac artery: 0.6 x 0.8 cm. There is severe stenosis at the origin of the inferior mesenteric artery with distal reconstitution. There is mild atherosclerotic stenosis at the origin of the celiac and superior mesenteric arteries. PERITONEUM / RETROPERITONEUM: No free air or fluid. BONES: There are degenerative changes in the spine. SOFT TISSUES: Unremarkable. IMPRESSION: 1. No evidence of active GI bleed identified. 2. Mucosal wall thickening and edema of the terminal ileum suggestive of terminal ileitis. 3. No evidence of aortic aneurysm identified. 4. 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 Signed by: Tamera Mccoy MD on 02/20/2020 8:36 PM
[2020-02-20] MEDS ORDERED: MELATONIN 3 MG TAB PO PRN (21:00)
[2020-02-20] MEDS ORDERED: ZOLPIDEM TARTRATE 5 MG TAB PO PRN (21:00)
[2020-02-21] VITALS (7 sets, daily range): BP systolic 111–153; BP diastolic 44–62
--- NOTE | 2020-02-21 00:30 | NUR ---
SPOKE TO MD MALHOTRA. AWARE POSITIVE OCCULT STOOL AND ABDOMINAL CT RESULTS. NEW ORDERS RECEIVED.
[2020-02-21 00:38] LABS: BASOPHILS # (AUTO) 0.1 (0.0-0.1); BASOPHILS % 1.1 % (0.0-1.0); EOSINOPHILS # (AUTO) 0.1 (0.0-0.4); EOSINOPHILS % 1.1 % (0.0-6.0); HEMATOCRIT 24.4 % (34.2-44.1); HEMOGLOBIN 7.6 g/dL (12.0-16.0); LYMPHOCYTES # (AUTO) 1.8 (1.0-3.2); LYMPHOCYTES % 32.5 % (18.0-39.1); MEAN CORPUSCULAR HEMOGLOBIN 33.8 pg (28-32); MEAN CORPUSCULAR HGB CONC 31.1 g/dL (31-35); MEAN CORPUSCULAR VOLUME 108.4 fL (81-99); MONOCYTES # (AUTO) 0.4 (0.2-0.8); MONOCYTES % 7.9 % (4.4-11.3); NEUTROPHILS # (AUTO) 3.1 (2.1-6.9); NEUTROPHILS % 56.8 % (38.7-80.0); PLATELET COUNT 278 x10e3/uL (140-360); RED BLOOD COUNT 2.25 x10e6/uL (3.6-5.1); RED CELL DISTRIBUTION WIDTH 14.5 % (11.7-14.4)
--- NOTE | 2020-02-21 03:39 | NUR ---
PATIENT OF UNIT FOR GI SCAN.
--- NOTE | 2020-02-21 05:41 | NUR ---
PATIENT RETURN TO UNIT VIA WHEELCHAIR.
[2020-02-21 06:06] LABS: BASOPHILS # (AUTO) 0.1 (0.0-0.1); BASOPHILS % 0.9 % (0.0-1.0); EOSINOPHILS # (AUTO) 0.1 (0.0-0.4); EOSINOPHILS % 1.8 % (0.0-6.0); HEMATOCRIT 26.2 % (34.2-44.1); LYMPHOCYTES # (AUTO) 1.1 (1.0-3.2); LYMPHOCYTES % 20.6 % (18.0-39.1); MEAN CORPUSCULAR HEMOGLOBIN 33.2 pg (28-32); MEAN CORPUSCULAR HGB CONC 30.5 g/dL (31-35); MEAN CORPUSCULAR VOLUME 108.7 fL (81-99); MONOCYTES # (AUTO) 0.5 (0.2-0.8); MONOCYTES % 9.2 % (4.4-11.3); NEUTROPHILS # (AUTO) 3.7 (2.1-6.9); PLATELET COUNT 253 x10e3/uL (140-360); RED BLOOD COUNT 2.41 x10e6/uL (3.6-5.1); RED CELL DISTRIBUTION WIDTH 14.6 % (11.7-14.4)
[2020-02-21 06:25] LABS: ALANINE AMINOTRANSFERASE 11 IU/L (0-55); ALBUMIN 3.2 g/dL (3.5-5.0); ALBUMIN/GLOBULIN RATIO 1.2 (0.8-2.0); ALKALINE PHOSPHATASE 29 IU/L (40-150); ANION GAP 12.3 mmol/L (8-16); BLOOD UREA NITROGEN 9 mg/dL (7-26); BUN/CREATININE RATIO 12 (6-25); CALCIUM 8.1 mg/dL (8.4-10.2); CARBON DIOXIDE 24 mmol/L (22-29); CHLORIDE 112 mmol/L (98-107); CREATININE, SERUM 0.75 mg/dL (0.57-1.11); EST GLOMERULAR FILTRATION RATE > 60 ML/MIN (60-); GLUCOSE 104 mg/dL (74-118); POTASSIUM 3.3 mmol/L (3.5-5.1); SODIUM 145 mmol/L (136-145)
--- NOTE | 2020-02-21 06:34 | NUR ---
IM- progress note O/N see below ROS: no f/c/s/N/V/ALEJANDRO/cp/sob/skin rash/vision changes v/s; revd PE tired appearing anicteric ns1s2 mod bs soft nt nd skin dry Trace leg edema a&ox; howard labs/meds revd A/P: Melena- IV PPI GIB- IV PPI Internal hemorrhoids Diverticulosis Macrocytic anemia- check panel Obesity BMI 30 Hx carotid stent>1 yr ago- hold clopidogrel. SCD; IV PPI Dispo: 02-20 f/u GI; replace K Grupo Pérez MD, PhD.
[2020-02-21] MEDS ORDERED: POTASSIUM CHLORIDE 20 MEQ TAB CR PO NR (06:45)
[2020-02-21] MEDS: SODIUM CHLORIDE 0.9% 1000ML 1,000 ML IV SCH ×2 (06:53→19:59)
--- NOTE | 2020-02-21 07:16 | Diagnostic Imaging Report ---
Tagged-RBC GI Bleed Study Reason for exam: 74-year-old female with melena. Discussion: The patient's own red blood cells were labeled with 25 mCi of technetium-99m pertechnetate using the in vitro method (UltraTag). Dynamic images of the abdomen were obtained through 60 minutes. Distribution of tracer activity appears physiologic throughout the abdomen. No abnormal accumulation of tracer is seen within the gastrointestinal lumen. Impression: No scan evidence of active gastrointestinal bleeding at this time. Signed by: Dr. Asha Anthony M.D. on 02/21/2020 7:12 AM
--- NOTE | 2020-02-21 07:18 | NUR ---
REPORT GIVEN TO DAYSHIFT NURSE. ALERT AND ORIENTED. RESTING IN BED. NO SIGNS IV INFILTRATION. BED LOCKED AND LOW POSITION. CALL LIGHT WITHIN REACH.
[2020-02-21] MEDS ORDERED: POTASSIUM CHLORIDE 20MEQ/100ML 100 ML IV ONE (07:45)
[2020-02-21 08:17] LABS: PLATELET ESTIMATE ADEQUATE; PLATELET MORPHOLOGY COMMENT NORMAL; RBC MORPHOLOGY COMMENT NORMAL
[2020-02-21] MEDS: CHOLECALCIFEROL 1,000 UNIT TAB PO SCH (09:00)
[2020-02-21] MEDS: FERROUS SULFATE 325 MG TAB PO SCH (09:00)
[2020-02-21] MEDS: FENOFIBRATE 130 MG PO SCH (09:00)
[2020-02-21] MEDS: LOSARTAN POTASSIUM 100 MG TAB PO SCH (09:00)
[2020-02-21] MEDS: CYANOCOBALAMIN 1,000 MCG TAB PO SCH (09:00)
[2020-02-21] MEDS: AMLODIPINE BESYLATE 5 MG TAB PO SCH (09:00)
[2020-02-21] MEDS: PANTOPRAZOLE 40 MG 10ML VIAL IV SCH ×2 (09:12→19:59)
[2020-02-21 12:01] LABS: BASOPHILS # (AUTO) 0.1 (0.0-0.1); BASOPHILS % 1.2 % (0.0-1.0); EOSINOPHILS # (AUTO) 0.1 (0.0-0.4); EOSINOPHILS % 1.5 % (0.0-6.0); HEMATOCRIT 25.6 % (34.2-44.1); HEMOGLOBIN 7.7 g/dL (12.0-16.0); LYMPHOCYTES # (AUTO) 1.1 (1.0-3.2); LYMPHOCYTES % 21.3 % (18.0-39.1); MEAN CORPUSCULAR HEMOGLOBIN 33.3 pg (28-32); MEAN CORPUSCULAR HGB CONC 30.1 g/dL (31-35); MEAN CORPUSCULAR VOLUME 110.8 fL (81-99); MONOCYTES # (AUTO) 0.4 (0.2-0.8); MONOCYTES % 8.1 % (4.4-11.3); NEUTROPHILS # (AUTO) 3.5 (2.1-6.9); NEUTROPHILS % 67.3 % (38.7-80.0); PLATELET COUNT 276 x10e3/uL (140-360); RED BLOOD COUNT 2.31 x10e6/uL (3.6-5.1); RED CELL DISTRIBUTION WIDTH 14.8 % (11.7-14.4)
[2020-02-21] MEDS ORDERED: FENTANYL CITRATE/PF 100MCG/2 ML INJ ONE (13:04)
[2020-02-21] MEDS ORDERED: LIDOCAINE HCL 2% LOCAL INJ 5 ML SDV VIAL INJ ONE (13:05)
[2020-02-21] MEDS ORDERED: PROPOFOL IV EMULSION 10 MG/ML 20 ML VIAL ONE (13:05)
[2020-02-21 19:14] LABS: BASOPHILS % 0.8 % (0.0-1.0); EOSINOPHILS # (AUTO) 0.1 (0.0-0.4); EOSINOPHILS % 1.2 % (0.0-6.0); HEMATOCRIT 24.7 % (34.2-44.1); HEMOGLOBIN 7.5 g/dL (12.0-16.0); LYMPHOCYTES # (AUTO) 1.4 (1.0-3.2); LYMPHOCYTES % 26.8 % (18.0-39.1); MEAN CORPUSCULAR HEMOGLOBIN 33.5 pg (28-32); MEAN CORPUSCULAR HGB CONC 30.4 g/dL (31-35); MEAN CORPUSCULAR VOLUME 110.3 fL (81-99); MONOCYTES # (AUTO) 0.4 (0.2-0.8); MONOCYTES % 8.2 % (4.4-11.3); NEUTROPHILS # (AUTO) 3.2 (2.1-6.9); NEUTROPHILS % 62.6 % (38.7-80.0); PLATELET COUNT 257 x10e3/uL (140-360); RED BLOOD COUNT 2.24 x10e6/uL (3.6-5.1); RED CELL DISTRIBUTION WIDTH 14.7 % (11.7-14.4)
--- OUTSIDE RECORDS SUMMARY | 2020-02-21 19:39 | XMS REPORT | Continuity of Care Document ---
Author Author [facility] t Organization [facility] Address [address] [place] [address] Phone Unavailable Care Team Providers Care Crane Manager Name Role Phone CHRISTAL ECHEVERRIA MD PCP [phone] GRUPO HINOJOSA Attphys Unavailable GRUPO HINOJOSA Admdavid Unavailable Problems Condition Name Condition Details Condition Category Status Onset Date Resolution Date Last Treatment Date Treating Clinician Comments Source Gastrointestinal hemorrhage GI bleed Problem Active [facility] Allergies, Adverse Reactions, Alerts This patient has no known allergies or adverse reactions. Medications Ordered Medication Name Filled Medication Name Start Date Stop Da te Current Medication? Ordering Clinician Indication Dosage Frequency Signature (SIG) Comments Components Source Cyanocobalamin (Vitamin B-12) 1,000 Mcg Tab Cyanocobal yanez (Vitamin B-12) 1,000 Mcg Tab 2018-12-29 00:00:00 Yes Grupo Hinojosa Md 1000 Daily [facility] Pantoprazole Sodium (Protonix) 40 Mg Tablet. Pantopr azole Sodium (Protonix) 40 Mg Tablet. 2018-12-29 00:00:00 Yes Grupo Hinojosa Md 40 Da [facility] Amlodipine Besylate 2.5 Mg Tablet Amlodipine Besylate 2.5 Mg Tablet Yes 2.5 Daily [facility] Cholecalciferol (Vitamin D3) (Vitamin D3) 1,000 Unit C apsule Cholecalciferol (Vitamin D3) (Vitamin D3) 1,000 Unit Capsule Yes 1000 Daily [facility] Fenofibrate 130 Mg Fenofibrate 130 Mg Yes 130 Da mikaela [facility] Ferrous Sulfate 325 Mg Tablet Ferrous Sulfate 325 Mg Tablet Yes 325 Daily [facility] Losartan Potassium 50 Mg Tablet Losartan Potassium 50 Mg Tablet Yes 50 Daily [facility] Melatonin 3 Mg Tablet.er Melatonin 3 Mg Tablet.er Yes 3 Bedtime as needed for Sleep [facility] Simvastatin 20 Mg Tablet Simvastatin 20 Mg Tablet Yes 20 Daily [facility] Aspirin (Aspir 81) 81 Mg Tablet., 81 Mg Oral Aspirin (Aspir 81) 81 Mg Tablet., 81 Mg Oral 2018-12-29 00:00:00 No 81 Da mikaela [facility] Clopidogrel Bisulfate (Plavix) 75 Mg Tablet, 75 Mg Ora l Clopidogrel Bisulfate (Plavix) 75 Mg Tablet, 75 Mg Oral 2018-12-29 00:00:00 No 75 Daily [facility] Procedures Procedure Date / Time Performed Performing Clinician Sourronny e EGD with biopsy 2018-12-28 00:00:00 MILANA MALHOTRA [facility] Encounters Start Date/Time End Date/Time Encounter Type Admission Type [facility] Facility Care Department Encounter ID Source 2018-12-27 19:15:00 2018-12-29 21:45:00 Discharged Inpatient (obs) [facility] [id number] [facility] Center Results Test Description Test Time Test Comments Results Result Comments Source Mitchell Oquendo BLEED 2020-02-21 07:11:00 [facility] 1945 Sex: [place] [address] Patient Name: ESTRELLA GOMEZ MR #: [id number] : 1945 Age/Sex: 74/F Req #: [id number] [facility] Physician: GRUPO HINOJOSA MD Ordered by: MILANA MALHOTRA MD Report #: [id number] Location: MED/SURG Room/Bed: [facility] Procedure: [id number] NM/G I BLEED Exam Date: 02/21/20 Exam Time: 344 REPORT STATUS: Signed Tagged-RBC GI Bleed Study Reason for exam: 74-year-old female with melena. Discussion: The patient's own red blood cells were labeled with 25 mCi of technetium-99m pertechnetate using the in vitro method (UltraTag). Dynamic images of the abdomen were obtained through 60 minutes. Distribution of tracer activity appears physiologic throughout the abdomen. No abnormal accumulation of tracer is seen within the gastrointestinal lumen. Impression: No scan evidence of active gastrointestinal bleeding at this time. Signed by: Dr. Jovita Anthony M.D. on 02/21/2020 7:12 AM Dictated By: JOVITA ANTHONY MD 1 Transcribed By: CRISTOFER on 02/21/20711 COPY TO: MILANA MALHOTRA MD CTA ABD/PELVIS 2020-02-20 19:47:00 [facility] : 1945 Sex: F [facility] [address] [address] Patient Name: ESTRELLA GOMEZ MR #: [id number] : 1945 Age/Sex: 74/F Req #: [id number] Adm Physician: GRUPO HINOJOSA MD Ordered by: GRUPO HINOJOSA MD Report #: [id number] Location: MED/SURG Room/Bed: [facility] Procedure: [id number] CT/CTA ABD/PELVIS Exam Date: 02/20/20 Exam Time: 1929 REPORT STATUS: Signed EXAM: CTA Abdomen and Pelvis WITH contrast INDICATION: GI bleed. COMPARISON: None. TECHNIQUE: Abdomen and pelvis were scanned utilizing a multidetector helical scanner from the lung base to the pubic symphysis after administration of IV contrast. Coronal and sagittal reformations were obtained. Routine protocol was performed. Scan was performed when during portal venous phase. IV CONTRAST: 100 mL of Isovue 370 ORAL CONTRAST: None COMPLICATIONS: None RADIATION DOSE: Total DLP: 1168 mGy*cm Estimated effective dose: (DLP x 0.015 x size factor) mSv CTDIvol has been reviewed. It is below th e limits set by the Radiation Protocol Committee (RPC). Dose modulation, iterative reconstruction, and/or weight based adjustment of the mA/kV was utilized to reduce the radiation dose to as low as reasonably achievable. FINDINGS: LINES and TUBES: None. LOWER THORAX: There is bibasilar atelectasis. Atherosclerotic calcification of the partially imaged coronary vessels. HEPATOBILIARY: No focal hepatic lesions. There is intra- and extra- hepatic biliary dilation likely post cholecystectomy reservoir effect. GALLBLADDER: Surgically absent. No wall thickening. SPLEEN: No splenomegaly. PANCREAS: No focal masses or ductal dilatation. ADRENALS: No adrenal nodules KIDNEYS/URETERS: Kidneys enhance symmetrically. No hydronephrosis. No cystic or solid mass lesions. No stones. GI TRACT: There is mucosal wall thickening and edema of the terminal ileum. No evidence of active GI bleeding identified. No abnormal distention, wall thickening, or evidence of bowel obstruction. There are diverticula within the colon without evidence of diverticulitis. Appendix is normal. PELVIC ORGANS/BLADDER: Unremarkable. LYMPH NODES: No lymphadenopathy. VASCULAR: There is moderate calcified and noncalcified atherosclerotic disease in the aorta and major arterial branches. No evidence of aortic aneurysm. Proximal abdominal aorta: 2.7 x 2.5 cm. Abdominal aorta at the level of the celiac trunk: 2.3 x 2.3 cm. Abdominal aorta at the level left renal artery: 1.8 x 1.7 cm. Abdominal aorta at the iliac bifurcation: 1.5 x 1.4 cm. Right external iliac artery: 0.7 x 0.6 cm. Left external iliac artery: 0.6 x 0.8 cm. There is severe stenosis at the origin of the inferior mesenteric artery with distal reconstitution. There is mild atherosclerotic stenosis at the origin of the celiac and superior mesenteric arteries. PERITONEUM / RETROPERITONEUM: No free air or fluid. BONES: There are degenerative changes in the spine. SOFT TISSUES: Unremarkable. IMPRESSION: 1. No evidence of active GI bleed identified. 2. Mucosal wall thickening and edema of the terminal ileum suggestive of terminal ileitis. 3. No evidence of aortic aneurysm identified. 4. 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 Signed by: Emmett Forman MD on 02/20/2020 8:36 PM Dictated By: EMMETT FORMAN MD 35 Transcribed By: CRISTOFER on 02/20/202035 COPY TO: GRUPO HINOJOSA MD Potassium Level 2018-12-29 17:41:00 Test Item Potassium Level (test code = 2823-3) 3.4 3.5-5.1 L [facility]Hemoglobin2019-09-13 17:30:00* Test Item Value Reference Range Interpretation Comments Hemoglobin (test code = 15685-7) 8.6 12.0-16.0 L [facility]woodHematocrit2019-09-13 17:30:00* Test Item Value Reference Range Interpretation Comments Hematocrit (test code = 4544-3) 28.6 34.2-44.1 L [facility]woodDifferential Total Cells Counted 2018-12-29 09:56:00* Test Item Value Reference Range Interpretation Comments Differential Total Cells Counted (test code = Differen tial Total Cells Counted) 100 [facility]woodNeutrophils % (Manual)2018-12-29 09:56:00 * Test Item Value Reference Range Interpretation Comments Neutrophils % (Manual) (test code = 38166-7) 66 40-74 [facility]woodLymphocytes % (Manual)2018-12-29 09:56:00 * Test Item Value Reference Range Interpretation Comments Lymphocytes % (Manual) (test code = 737-7) 20 19-48 [facility]woodMonocytes % (Manual)2018-12-29 09:56:00* Test Item Value Reference Range Interpretation Comments Monocytes % (Manual) (test code = 744-3) 12 3.4-9.0 H [facility]woodEosinophils % (Manual)2018-12-29 09:56:00 * Test Item Value Reference Range Interpretation Comments Eosinophils % (Manual) (test code = 714-6) 2 0-7 [facility]woodPlatelet Mitayxvu2708-35-34 09:56:00* Test Item Value Reference Range Interpretation Comments Platelet Estimate (test code = 99993-5) ADEQUATE [facility]woodRed Cell Morphology Cpyabzq8794-07-78 09:56:00* Test Item Value Reference Range Interpretation Comments Red Cell Morphology Comment (test code = 6742-1) NORMAL [facility] KingwoodUrine Owqtliy7248-19-82 08:36:00* Test Item Value Reference Range Interpretation Comments Urine Culture (test code = 630-4) Organism: ESCHERICHIA COLI [facility] Centerodium Bcudj4849-64-32 07:06:00* Test Item Value Reference Range Interpretation Comments Sodium Level (test code = 2951-2) 145 136-145 [facility]woodChloride Revvl7325-07-76 07:06:00* Test Item Value Reference Range Interpretation Comments Chloride Level (test code = 2075-0) 113 98-107 H [facility] KingwoodCarbon Dioxide Acnzi6649-33-79 07:06:00* Test Item Value Reference Range Interpretation Comments Carbon Dioxide Level (test code = 2028-9) 22 22-29 [facility] KingwoodAnion Hhn9501-31-43 07:06:00* Test Item Value Reference Range Interpretation Comments Anion Gap (test code = 65297-1) 13.1 8-16 [facility]woodBlood Urea Jjnlhyki3422-14-50 07:06:00* Test Item Value Reference Range Interpretation Comments Blood Urea Nitrogen (test code = 3094-0) 13 7-26 [facility]woodCreatinine2019-09-13 07:06:00* Test Item Value Reference Range Interpretation Comments Creatinine (test code = 2160-0) 0.83 0.57-1.11 [facility]woodBUN/Creatinine Ysurx9205-21-87 07:06:00* Test Item Value Reference Range Interpretation Comments BUN/Creatinine Ratio (test code = 3097-3) 16 6-25 [facility] KingwoodEstimat Glomerular Filtration Rate 2018-12-29 07:06:00* Test Item Value Reference Range Interpretation Comments Estimat Glomerular Filtration Rate (test code = 744332302) > 60 >60 Ranges were taken from the National Kidney Disease Education Program and the [facility] [employer] Foundation literature.Reference ranges:60 or greater: Guxros88-13 ( for 3 consecutive months): Chronic kidney disease 15 or less: Kidney failureHCA Houston Healthcare KingwoodGlucose Xhnzb8750-40-38 07:06:00* Test Item Value Reference Range Interpretation Comments Glucose Level (test code = RJG1796) 78 74-118 [facility]woodCalcium Xsmer5386-98-30 07:06:00* Test Item Value Reference Range Interpretation Comments Calcium Level (test code = 09155-5) 8.0 8.4-10.2 L [facility]woodWhite Blood Gkvoq3748-07-10 06:24:00* Test Item Value Reference Range Interpretation Comments White Blood Count (test code = 6690-2) 5.11 4.8-10.8 [facility]woodRed Blood Deuwo8998-38-33 06:24:00* Test Item Value Reference Range Interpretation Comments Red Blood Count (test code = 789-8) 2.20 3.6-5.1 L [facility] KingwoodMean Corpuscular Tjufet3845-29-77 06:24:00* Test Item Value Reference Range Interpretation Comments Mean Corpuscular Volume (test code = 787-2) 107.7 81-99 H [facility] KingwoodMean Corpuscular Lbknvwovmy1098-45-85 06:24:00* Test Item Value Reference Range Interpretation Comments Mean Corpuscular Hemoglobin (test code = 785-6) 34.1 28-32 H [facility] KingwoodMean Corpuscular Hemoglobin Concent 2018-12-29 06:24:00* Test Item Value Reference Range Interpretation Comments Mean Corpuscular Hemoglobin Concent (test code = 786-4) 31.6 31-35 [facility] KingwoodRed Cell Distribution Whyll0995-89-21 06:24:00* Test Item Value Reference Range Interpretation Comments Red Cell Distribution Width (test code = 33020-7) 21.4 11.7 -14.4 H [facility] KingwoodPlatelet Icbng0510-61-31 06:24:00* Test Item Value Reference Range Interpretation Comments Platelet Count (test code = 777-3) 244 140-360 [facility] KingwoodNeutrophils (%) (Auto)2018-12-29 06:24:00 * Test Item Value Reference Range Interpretation Comments Neutrophils (%) (Auto) (test code = 82309-9) 63.9 38.7-80.0 [facility] KingwoodLymphocytes (%) (Auto)2018-12-29 06:24:00 * Test Item Value Reference Range Interpretation Comments Lymphocytes (%) (Auto) (test code = 736-9) 19.4 18.0-39.1 [facility]woodMonocytes (%) (Auto)2018-12-29 06:24:00* Test Item Value Reference Range Interpretation Comments Monocytes (%) (Auto) (test code = 5905-5) 11.2 4.4-11.3 [facility]woodEosinophils (%) (Auto)2018-12-29 06:24:00 * Test Item Value Reference Range Interpretation Comments Eosinophils (%) (Auto) (test code = 713-8) 2.7 0.0-6.0 [facility] KingwoodBasophils (%) (Auto)2018-12-29 06:24:00* Test Item Value Reference Range Interpretation Comments Basophils (%) (Auto) (test code = 706-2) 0.6 0.0-1.0 [facility] KingwoodIM GRANULOCYTES %2018-12-29 06:24:00* Test Item Value Reference Range Interpretation Comments IM GRANULOCYTES % (test code = IM GRANULOCYTES %) 2.2 0.0- 1.0 H [facility] KingwoodNeutrophils # (Auto)2018-12-29 06:24:00* Test Item Value Reference Range Interpretation Comments Neutrophils # (Auto) (test code = 751-8) 3.3 2.1-6.9 [facility]woodLymphocytes # (Auto)2018-12-29 06:24:00* Test Item Value Reference Range Interpretation Comments Lymphocytes # (Auto) (test code = 90135-5) 1.0 1.0-3.2 [facility]woodMonocytes # (Auto)2018-12-29 06:24:00* Test Item Value Reference Range Interpretation Comments Monocytes # (Auto) (test code = 742-7) 0.6 0.2-0.8 [facility]woodEosinophils # (Auto)2018-12-29 06:24:00* Test Item Value Reference Range Interpretation Comments Eosinophils # (Auto) (test code = 711-2) 0.1 0.0-0.4 [facility]woodBasophils # (Auto)2018-12-29 06:24:00* Test Item Value Reference Range Interpretation Comments Basophils # (Auto) (test code = 704-7) 0.0 0.0-0.1 [facility] KingwoodAbsolute Immature Granulocyte (auto 2018-12-29 06:24:00* Test Item Value Reference Range Interpretation Comments Absolute Immature Granulocyte (auto (kaia t code = Absolute Immature Granulocyte (auto) 0.11 0-0.1 H [facility] KingwoodVitamin B12 Djltm1974-26-58 09:15:00* Test Item Value Reference Range Interpretation Comments Vitamin B12 Level (test code = 31424-3) 77 213-816 L [facility] KingwoodFolate2019-09-12 09:15:00* Test Item Value Reference Range Interpretation Comments Folate (test code = 2284-8) 14.6 7.0-15.4 [facility] KingwoodFerritin2019-09-12 08:59:00* Test Item Value Reference Range Interpretation Comments Ferritin (test code = 2276-4) 54.38 4.63-204.00 [facility] KingwoodIron Ilzvh7181-87-70 08:47:00* Test Item Value Reference Range Interpretation Comments Iron Level (test code = 2498-4) 100 50-170 [facility]woodTotal Iron Binding Jlbjzxcy7273-49-29 08:47:00* Test Item Value Reference Range Interpretation Comments Total Iron Binding Capacity (test code = 2500-7) 468 261-4 78 [facility]woodPercent Iron Idkrhhpmit0892-20-78 08:47:00* Test Item Value Reference Range Interpretation Comments Percent Iron Saturation (test code = 2502-3) 21 15-50 [facility] KingwoodTransferrin2019-09-12 08:47:00* Test Item Value Reference Range Interpretation Comments Transferrin (test code = 3034-6) 334 180-382 [facility] KingwoodTriglycerides Kjtkg1232-47-74 08:47:00* Test Item Value Reference Range Interpretation Comments Triglycerides Level (test code = 2571-8) 129 0-149 [facility] KingwoodCholesterol Imvpi4269-88-84 08:47:00* Test Item Value Reference Range Interpretation Comments Cholesterol Level (test code = 2093-3) 89 0-199 Less than 200 mg/dL Low Dwmd747 - 239 mg/dL Borderline Grzo231 m g/dl and greater High Risk [facility] KingwoodLDL Gdaaupgoume8787-32-94 08:47:00* Test Item Value Reference Range Interpretation Comments LDL Cholesterol (test code = 2089-1) 39 60-130 L [facility] KingwoodHDL Bynuxuaeshu3010-62-68 08:47:00* Test Item Value Reference Range Interpretation Comments HDL Cholesterol (test code = 2085-9) 24 40-60 L [facility]woodCholesterol/HDL Dulwi7532-21-67 08:47:00 * Test Item Value Reference Range Interpretation Comments Cholesterol/HDL Ratio (test code = 9830-1) 3.7 3.0-3.6 H [facility] KingwoodPercent Reticulocyte Cttmn3049-00-66 08:20:00* Test Item Value Reference Range Interpretation Comments Percent Reticulocyte Count (test code = 09770-7) 7.3 0.8-2 .2 H [facility] KingwoodCreatine Pvhtmx9185-97-45 17:39:00* Test Item Value Reference Range Interpretation Comments Creatine Kinase (test code = 2157-6) 66 29-168 [facility] KingwoodCreatine Kinase RF7824-08-12 17:39:00* Test Item Value Reference Range Interpretation Comments Creatine Kinase MB (test code = 70962-1) 3.30 0-5.0 [facility] KingwoodTroponin R8982-40-25 17:39:00* Test Item Value Reference Range Interpretation Comments Troponin I (test code = NCG3406) 0.028 0-0.300 [facility] KingwoodUrine VSC9724-10-51 17:35:00* Test Item Value Reference Range Interpretation Comments Urine WBC (test code = 5821-4) 0-5 0-5 [facility] KingwoodUrine BNO5928-80-94 17:35:00* Test Item Value Reference Range Interpretation Comments Urine RBC (test code = 99879-5) NONE 0-5 [facility] KingwoodUrine Khqiuktp5124-65-47 17:35:00* Test Item Value Reference Range Interpretation Comments Urine Bacteria (test code = 09885-6) MANY NONE H [facility] KingwoodUrine Epithelial Gioxt2745-43-67 17:35:00 * Test Item Value Reference Range Interpretation Comments Urine Epithelial Cells (test code = 34405-7) FEW NONE [facility] KingwoodUrine Nypps7553-38-37 17:26:00* Test Item Value Reference Range Interpretation Comments Urine Color (test code = 5778-6) YELLOW YELLOW [facility] KingwoodUrine Rbqxhca9981-34-39 17:26:00* Test Item Value Reference Range Interpretation Comments Urine Clarity (test code = 66027-3) CLEAR CLEAR [facility] Specific Htsodpj5677-95-72 17:26:00 * Test Item Value Reference Range Interpretation Comments Urine Specific [place] (test code = 5811-5) 1.020 1.010-1.02 5 [facility] KingwoodUrine dA6852-15-98 17:26:00* Test Item Value Reference Range Interpretation Comments Urine pH (test code = 28214-3) 6 5-7 [facility] KingwoodUrine Leukocyte Wlocxgil8179-91-58 17:26:00* Test Item Value Reference Range Interpretation Comments Urine Leukocyte Esterase (test code = 81553-1) TRACE NEGATIV E [facility] Lkdrpsb0125-95-03 17:26:00* Test Item Value Reference Range Interpretation Comments Urine Nitrite (test code = 26671-8) POSITIVE NEGATIVE [facility] CampusU[facility] Douroyn5094-75-57 17:26:00* Test Item Value Reference Range Interpretation Comments Urine Protein (test code = 79709-3) NEGATIVE NEGATIVE [facility] KingwoodUrine Glucose (UA)2018-12-27 17:26:00* Test Item Value Reference Range Interpretation Comments Urine Glucose (UA) (test code = 24385-9) NEGATIVE NEGATIVE [facility] KingwoodUrine Eaacwhy8518-23-44 17:26:00* Test Item Value Reference Range Interpretation Comments Urine Ketones (test code = 95230-7) NEGATIVE NEGATIVE [facility] KingwoodUrine Rwpetvhcsgli5729-56-11 17:26:00* Test Item Value Reference Range Interpretation Comments Urine Urobilinogen (test code = 48204-0) 0.2 0.2-1 [facility] KingwoodUrine Yaczjqcko2062-40-44 17:26:00* Test Item Value Reference Range Interpretation Comments Urine Bilirubin (test code = 1976-8) NEGATIVE NEGATIVE [facility] KingwoodUrine Lrdos5157-04-01 17:26:00* Test Item Value Reference Range Interpretation Comments Urine Blood (test code = 60308-1) NEGATIVE NEGATIVE [facility]woodTotal Zggfgvjiv5557-80-10 17:25:00* Test Item Value Reference Range Interpretation Comments Total Bilirubin (test code = 1975-2) 0.2 0.2-1.2 [facility] KingwoodAspartate Amino Transf (AST/SGOT) 2018-12-27 17:25:00* Test Item Value Reference Range Interpretation Comments Aspartate Amino Transf (AST/SGOT) (test code = Aspartate Amino Transf (AST/SGOT)) 13 5-34 [facility] KingwoodAlanine Aminotransferase (ALT/SGPT) 2018-12-27 17:25:00* Test Item Value Reference Range Interpretation Comments Alanine Aminotransferase (ALT/SGPT) (test code = 1742-6) 12 0-55 [facility]woodTotal Vtkztli8314-75-19 17:25:00* Test Item Value Reference Range Interpretation Comments Total Protein (test code = 2885-2) 5.5 6.5-8.1 L [facility] KingwoodAlbumin2019-09-11 17:25:00* Test Item Value Reference Range Interpretation Comments Albumin (test code = 1751-7) 2.9 3.5-5.0 L [facility] KingwoodGlobulin2019-09-11 17:25:00* Test Item Value Reference Range Interpretation Comments Globulin (test code = 17950-5) 2.6 2.3-3.5 [facility]woodAlbumin/Globulin Xhlka6134-57-91 17:25:00 * Test Item Value Reference Range Interpretation Comments Albumin/Globulin Ratio (test code = 1759-0) 1.1 0.8-2.0 [facility] KingwoodAlkaline Fxalkwbkjbh8574-68-01 17:25:00* Test Item Value Reference Range Interpretation Comments Alkaline Phosphatase (test code = 6768-6) 35 40-150 L [facility] KingwoodProthrombin Zdcg0284-71-74 17:11:00* Test Item Value Reference Range Interpretation Comments Prothrombin Time (test code = 5902-2) 13.5 11.9-14.5 [facility] KingwoodProthromb Time International Ratio 2018-12-27 17:11:00* Test Item Value Reference Range Interpretation Comments Prothromb Time International Ratio (test code = 6301-6) 0.98 Oral Anticoagulant Therapy INR Values:1. Low Intensity Therapy 1.5 - 2.02 . Moderate Intensity Therapy 2.0 - 3.03. High Intensity Therapy(1) 2.5 - 3. 54. High Intensity Therapy(2) 3.0 - 4.05. Panic Value INR > 5.0 [facility] KingwoodActivated Partial Thromboplast Time 2018-12-27 17:11:00* Test Item Value Reference Range Interpretation Comments Activated Partial Thromboplast Time (test code = 09152-6) 26.9 23.8-35.5 [facility]
--- OUTSIDE RECORDS SUMMARY | 2020-02-21 19:41 | XMS REPORT | Continuity of Care Document ---
Author Author [facility] t Organization [facility] Address [address] [place] [address] Phone Unavailable Care Team Providers Care Director Organizational Name Role Phone CHRISTAL ECHEVERRIA MD PCP GRUPO HINOJOSA Attphys Unavailable GRUPO HINOJOSA Admdavid Unavailable Problems Condition Name Condition Details Condition Category Status Onset Date Resolution Date Last Treatment Date Treating Clinician Comments Source Gastrointestinal hemorrhage GI bleed Problem Active [facility] Allergies, Adverse Reactions, Alerts This patient has no known allergies or adverse reactions. Medications Ordered Medication Name Filled Medication Name Start Date Stop Da te Current Medication? Ordering Clinician Indication Dosage Frequency Signature (SIG) Comments Components Source Cyanocobalamin (Vitamin B-12) 1,000 Mcg Tab Cyanocobal yanez (Vitamin B-12) 1,000 Mcg Tab 2018-12-29 00:00:00 Yes Grupo Hinojosa Md 1000 Daily [facility] Pantoprazole Sodium (Protonix) 40 Mg Tablet. Pantopr azole Sodium (Protonix) 40 Mg Tablet. 2018-12-29 00:00:00 Yes Grupo Hinojosa Md [address] [facility] Amlodipine Besylate 2.5 Mg Tablet Amlodipine Besylate 2.5 Mg Tablet Yes 2.5 Daily [facility] Cholecalciferol (Vitamin D3) (Vitamin D3) 1,000 Unit C apsule Cholecalciferol (Vitamin D3) (Vitamin D3) 1,000 Unit Capsule Yes 1000 Daily [facility] Fenofibrate 130 Mg Fenofibrate 130 Mg Yes 130 Da mikaela [facility] Ferrous Sulfate 325 Mg Tablet Ferrous Sulfate 325 Mg Tablet Yes 325 Daily [facility] Losartan Potassium 50 Mg Tablet Losartan Potassium 50 Mg Tablet Yes 50 Daily [facility] Melatonin 3 Mg Tablet.er Melatonin 3 Mg Tablet.er Yes 3 Bedtime as needed for Sleep [facility] Simvastatin 20 Mg Tablet Simvastatin 20 Mg Tablet Yes 20 Daily [facility] Aspirin (Aspir 81) 81 Mg Tablet., 81 Mg Oral Aspirin (Aspir 81) 81 Mg Tablet., 81 Mg Oral 2018-12-29 00:00:00 No 81 Da mikaela [facility] Clopidogrel Bisulfate (Plavix) 75 Mg Tablet, 75 Mg Ora l Clopidogrel Bisulfate (Plavix) 75 Mg Tablet, 75 Mg Oral 2018-12-29 00:00:00 No 75 Daily [facility] Procedures Procedure Date / Time Performed Performing Clinician Sourronny e EGD with biopsy 2018-12-28 00:00:00 MILANA MALHOTRA [facility] Encounters Start Date/Time End Date/Time Encounter Type Admission Type [facility] Care Department Encounter ID Source 2018-12-27 19:15:00 2018-12-29 21:45:00 Discharged Inpatient (obs) [facility] [id number] [facility] Results Test Description Test Time Test Comments Results Result Comments Source Mitchell Oquendo BLEED 2020-02-21 07:11:00 [facility] 1945 Sex: [place] [address] Patient Name: ESTRELLA GOMEZ MR #: [id number] : 1945 Age/Sex: 74/F Req #: [id number] [facility] Physician: GRUPO HINOJOSA MD Ordered by: MILANA MALHOTRA MD Report #: [id number] Location: MED/SURG Room/Bed: [facility] Procedure: [id number] NM/G I BLEED Exam Date: 02/21/20 Exam [...] MILANA MALHOTRA MD CTA ABD/PELVIS 2020-02-20 19:47:00 [facility] : 1945 Sex: F [facility] [address] [place] [address] Patient Name: ESTRELLA GOMEZ MR #: [id number] : 1945 Age/Sex: 74/F Req #: [id number] Adm Physician: GRUPO HINOJOSA MD Ordered by: GRUPO HINOJOSA MD Report #: [id number] Location: MED/SURG Room/Bed: [facility] Procedure: [id number] CT/CTA ABD/PELVIS Exam Date: 02/20/20 Exam Time: [...] (test code = 2823-3) 3.4 3.5-5.1 L [facility] CenterHemoglobin2019-09-13 17:30:00* Test Item Value Reference Range Interpretation Comments Hemoglobin (test code = 07161-2) 8.6 12.0-16.0 L [facility] CenterHematocrit2019-09-13 17:30:00* Test Item Value Reference Range Interpretation Comments Hematocrit (test code = 4544-3) 28.6 34.2-44.1 L [facility] CenterDifferential Total Cells Counted 2018-12-29 09:56:00* Test Item Value Reference Range Interpretation Comments Differential Total Cells Counted (test code = Differen tial Total Cells Counted) 100 [facility] CenterNeutrophils % (Manual)2018-12-29 09:56:00 * Test Item Value Reference Range Interpretation Comments Neutrophils % (Manual) (test code = 77155-6) 66 40-74 [facility] CenterLymphocytes % (Manual)2018-12-29 09:56:00 * Test Item Value Reference Range Interpretation Comments Lymphocytes % (Manual) (test code = 737-7) 20 19-48 [facility] CenterMonocytes % (Manual)2018-12-29 09:56:00* Test Item Value Reference Range Interpretation Comments Monocytes % (Manual) (test code = 744-3) 12 3.4-9.0 H [facility] CenterEosinophils % (Manual)2018-12-29 09:56:00 * Test Item Value Reference Range Interpretation Comments Eosinophils % (Manual) (test code = 714-6) 2 0-7 [facility] CenterPlatelet Uibejzok2842-35-31 09:56:00* Test Item Value Reference Range Interpretation Comments Platelet Estimate (test code = 29071-1) ADEQUATE [facility] CenterRed Cell Morphology Tuigiok9688-59-93 09:56:00* Test Item Value Reference Range Interpretation Comments Red Cell Morphology Comment (test code = 6742-1) NORMAL [facility] CenterUrine Bioekry8808-05-75 08:36:00* Test Item Value Reference Range Interpretation Comments Urine Culture (test code = 630-4) Organism: ESCHERICHIA COLI [facility] Hkwcd7641-94-90 07:06:00* Test Item Value Reference Range Interpretation Comments Sodium Level (test code = 2951-2) 145 136-145 [facility] CenterChloride Mvxgq2654-88-38 07:06:00* Test Item Value Reference Range Interpretation Comments Chloride Level (test code = 2075-0) 113 98-107 H [facility] CenterCarbon Dioxide Kvmmy6809-07-84 07:06:00* Test Item Value Reference Range Interpretation Comments Carbon Dioxide Level (test code = 2028-9) 22 22-29 [facility] CenterAnion Bkw2846-05-98 07:06:00* Test Item Value Reference Range Interpretation Comments Anion Gap (test code = 44024-7) 13.1 8-16 [facility] CenterBlood Urea Nhshjtio9288-67-78 07:06:00* Test Item Value Reference Range Interpretation Comments Blood Urea Nitrogen (test code = 3094-0) 13 7-26 [facility] CenterCreatinine2019-09-13 07:06:00* Test Item Value Reference Range Interpretation Comments Creatinine (test code = 2160-0) 0.83 0.57-1.11 [facility] CenterBUN/Creatinine Yhwps0396-05-68 07:06:00* Test Item Value Reference Range Interpretation Comments BUN/Creatinine Ratio (test code = 3097-3) 16 6-25 [facility] CenterEstimat Glomerular Filtration Rate 2018-12-29 07:06:00* Test Item Value Reference Range Interpretation Comments Estimat Glomerular Filtration Rate (test code = 484090914) > 60 >60 Ranges were taken from the National Kidney Disease Education Program and the [facility] Kidney Foundation literature.Reference ranges:60 or greater: Jhdcla98-50 ( for 3 consecutive months): Chronic kidney disease 15 or less: Kidney failureChildress Regional Medical CenterGlucose Aorxp4154-36-21 07:06:00* Test Item Value Reference Range Interpretation Comments Glucose Level (test code = SYK8389) 78 74-118 [facility] CenterCalcium Ntmdh2584-26-02 07:06:00* Test Item Value Reference Range Interpretation Comments Calcium Level (test code = 03139-4) 8.0 8.4-10.2 L [facility] CenterWhite Blood Naoed1817-51-41 06:24:00* Test Item Value Reference Range Interpretation Comments White Blood Count (test code = 6690-2) 5.11 4.8-10.8 [facility] CenterRed Blood Wjxjz0537-73-25 06:24:00* Test Item Value Reference Range Interpretation Comments Red Blood Count (test code = 789-8) 2.20 3.6-5.1 L [facility] CenterMean Corpuscular Asqsyp7274-99-75 06:24:00* Test Item Value Reference Range Interpretation Comments Mean Corpuscular Volume (test code = 787-2) 107.7 81-99 H [facility] CenterMean Corpuscular Vdhhpirdkj1732-91-76 06:24:00* Test Item Value Reference Range Interpretation Comments Mean Corpuscular Hemoglobin (test code = 785-6) 34.1 28-32 H [facility] CenterMean Corpuscular Hemoglobin Concent 2018-12-29 06:24:00* Test Item Value Reference Range Interpretation Comments Mean Corpuscular Hemoglobin Concent (test code = 786-4) 31.6 31-35 [facility] CenterRed Cell Distribution Eowje8988-43-73 06:24:00* Test Item Value Reference Range Interpretation Comments Red Cell Distribution Width (test code = 22419-2) 21.4 11.7 -14.4 H [facility] CenterPlatelet Igimw5399-49-25 06:24:00* Test Item Value Reference Range Interpretation Comments Platelet Count (test code = 777-3) 244 140-360 [facility] CenterNeutrophils (%) (Auto)2018-12-29 06:24:00 * Test Item Value Reference Range Interpretation Comments Neutrophils (%) (Auto) (test code = 32049-0) 63.9 38.7-80.0 [facility] CenterLymphocytes (%) (Auto)2018-12-29 06:24:00 * Test Item Value Reference Range Interpretation Comments Lymphocytes (%) (Auto) (test code = 736-9) 19.4 18.0-39.1 [facility] CenterMonocytes (%) (Auto)2018-12-29 06:24:00* Test Item Value Reference Range Interpretation Comments Monocytes (%) (Auto) (test code = 5905-5) 11.2 4.4-11.3 [facility] CenterEosinophils (%) (Auto)2018-12-29 06:24:00 * Test Item Value Reference Range Interpretation Comments Eosinophils (%) (Auto) (test code = 713-8) 2.7 0.0-6.0 [facility] CenterBasophils (%) (Auto)2018-12-29 06:24:00* Test Item Value Reference Range Interpretation Comments Basophils (%) (Auto) (test code = 706-2) 0.6 0.0-1.0 [facility] CenterIM GRANULOCYTES %2018-12-29 06:24:00* Test Item Value Reference Range Interpretation Comments IM GRANULOCYTES % (test code = IM GRANULOCYTES %) 2.2 0.0- 1.0 H [facility] CenterNeutrophils # (Auto)2018-12-29 06:24:00* Test Item Value Reference Range Interpretation Comments Neutrophils # (Auto) (test code = 751-8) 3.3 2.1-6.9 [facility] CenterLymphocytes # (Auto)2018-12-29 06:24:00* Test Item Value Reference Range Interpretation Comments Lymphocytes # (Auto) (test code = 76981-3) 1.0 1.0-3.2 [facility] CenterMonocytes # (Auto)2018-12-29 06:24:00* Test Item Value Reference Range Interpretation Comments Monocytes # (Auto) (test code = 742-7) 0.6 0.2-0.8 [facility] CenterEosinophils # (Auto)2018-12-29 06:24:00* Test Item Value Reference Range Interpretation Comments Eosinophils # (Auto) (test code = 711-2) 0.1 0.0-0.4 [facility] CenterBasophils # (Auto)2018-12-29 06:24:00* Test Item Value Reference Range Interpretation Comments Basophils # (Auto) (test code = 704-7) 0.0 0.0-0.1 [facility] CenterAbsolute Immature Granulocyte (auto 2018-12-29 06:24:00* Test Item Value Reference Range Interpretation Comments Absolute Immature Granulocyte (auto (kaia t code = Absolute Immature Granulocyte (auto) 0.11 0-0.1 H [facility] CenterVitamin B12 Duqme5701-56-19 09:15:00* Test Item Value Reference Range Interpretation Comments Vitamin B12 Level (test code = 48664-5) 77 213-816 L [facility] CenterFolate2019-09-12 09:15:00* Test Item Value Reference Range Interpretation Comments Folate (test code = 2284-8) 14.6 7.0-15.4 [facility] CenterFerritin2019-09-12 08:59:00* Test Item Value Reference Range Interpretation Comments Ferritin (test code = 2276-4) 54.38 4.63-204.00 [facility] CenterIron Fanuu9347-31-74 08:47:00* Test Item Value Reference Range Interpretation Comments Iron Level (test code = 2498-4) 100 50-170 [facility] CenterTotal Iron Binding Yxhybhsa7914-84-03 08:47:00* Test Item Value Reference Range Interpretation Comments Total Iron Binding Capacity (test code = 2500-7) 468 261-4 78 [facility] CenterPercent Iron Dtlnkpwlto7371-65-26 08:47:00* Test Item Value Reference Range Interpretation Comments Percent Iron Saturation (test code = 2502-3) 21 15-50 [facility] CenterTransferrin2019-09-12 08:47:00* Test Item Value Reference Range Interpretation Comments Transferrin (test code = 3034-6) 334 180-382 [facility] CenterTriglycerides Ktffp2036-55-23 08:47:00* Test Item Value Reference Range Interpretation Comments Triglycerides Level (test code = 2571-8) 129 0-149 [facility] CenterCholesterol Ijrss8469-01-78 08:47:00* Test Item Value Reference Range Interpretation Comments Cholesterol Level (test code = 2093-3) 89 0-199 Less than 200 mg/dL Low Nomy466 - 239 mg/dL Borderline Azqg898 m g/dl and greater High Risk [facility] CenterLDL Yokezhpifww5448-12-70 08:47:00* Test Item Value Reference Range Interpretation Comments LDL Cholesterol (test code = 2089-1) 39 60-130 L [facility] CenterHDL Ugceepxuqom9310-06-98 08:47:00* Test Item Value Reference Range Interpretation Comments HDL Cholesterol (test code = 2085-9) 24 40-60 L [facility] CenterCholesterol/HDL Rgivj5660-70-77 08:47:00 * Test Item Value Reference Range Interpretation Comments Cholesterol/HDL Ratio (test code = 9830-1) 3.7 3.0-3.6 H [facility] CenterPercent Reticulocyte Fnapg8455-03-50 08:20:00* Test Item Value Reference Range Interpretation Comments Percent Reticulocyte Count (test code = 74344-6) 7.3 0.8-2 .2 H [facility] CenterCreatine Eraedj3582-37-79 17:39:00* Test Item Value Reference Range Interpretation Comments Creatine Kinase (test code = 2157-6) 66 29-168 [facility] CenterCreatine Kinase OU0729-22-89 17:39:00* Test Item Value Reference Range Interpretation Comments Creatine Kinase MB (test code = 87657-3) 3.30 0-5.0 [facility] CenterTroponin N3459-97-09 17:39:00* Test Item Value Reference Range Interpretation Comments Troponin I (test code = KHU1503) 0.028 0-0.300 [facility] CenterUrine COI3400-72-44 17:35:00* Test Item Value Reference Range Interpretation Comments Urine WBC (test code = 5821-4) 0-5 0-5 [facility] CenterUrine GCS0774-05-83 17:35:00* Test Item Value Reference Range Interpretation Comments Urine RBC (test code = 71015-5) NONE 0-5 [facility] CenterUrine Upocqibm1765-36-17 17:35:00* Test Item Value Reference Range Interpretation Comments Urine Bacteria (test code = 56308-8) MANY NONE H [facility] CenterUrine Epithelial Uimpw7906-77-29 17:35:00 * Test Item Value Reference Range Interpretation Comments Urine Epithelial Cells (test code = 05761-2) FEW NONE [facility] CenterUrine Phmhe5097-93-43 17:26:00* Test Item Value Reference Range Interpretation Comments Urine Color (test code = 5778-6) YELLOW YELLOW [facility] CenterUrine Qifzrsn9476-03-15 17:26:00* Test Item Value Reference Range Interpretation Comments Urine Clarity (test code = 04068-9) CLEAR CLEAR [facility] Specific Rbzwpkz8596-13-73 17:26:00 * Test Item Value Reference Range Interpretation Comments Urine Specific Axson (test code = 5811-5) 1.020 1.010-1.02 5 [facility] CenterUrine aT7230-64-66 17:26:00* Test Item Value Reference Range Interpretation Comments Urine pH (test code = 17835-5) 6 5-7 [facility] CenterUrine Leukocyte Pxnklvoi3356-86-99 17:26:00* Test Item Value Reference Range Interpretation Comments Urine Leukocyte Esterase (test code = 06316-5) TRACE NEGATIV E [facility] Nxetxwy0451-14-38 17:26:00* Test Item Value Reference Range Interpretation Comments Urine Nitrite (test code = 19300-9) POSITIVE NEGATIVE [facility] CampusUrine Btigour0250-83-35 17:26:00* Test Item Value Reference Range Interpretation Comments Urine Protein (test code = 46183-4) NEGATIVE NEGATIVE [facility] CenterUrine Glucose (UA)2018-12-27 17:26:00* Test Item Value Reference Range Interpretation Comments Urine Glucose (UA) (test code = 20947-0) NEGATIVE NEGATIVE [facility] CenterUrine Lujqncr4182-02-53 17:26:00* Test Item Value Reference Range Interpretation Comments Urine Ketones (test code = 36620-0) NEGATIVE NEGATIVE [facility] CenterUrine Rxhuksqnkzej5013-91-91 17:26:00* Test Item Value Reference Range Interpretation Comments Urine Urobilinogen (test code = 85522-1) 0.2 0.2-1 [facility] CenterUrine Zptzayrlv0255-34-46 17:26:00* Test Item Value Reference Range Interpretation Comments Urine Bilirubin (test code = 1976-8) NEGATIVE NEGATIVE [facility] CenterUrine Qjupj6550-61-36 17:26:00* Test Item Value Reference Range Interpretation Comments Urine Blood (test code = 54694-9) NEGATIVE NEGATIVE [facility] CenterTotal Oxgdsowyx1587-31-13 17:25:00* Test Item Value Reference Range Interpretation Comments Total Bilirubin (test code = 1975-2) 0.2 0.2-1.2 [facility] CenterAspartate Amino Transf (AST/SGOT) 2018-12-27 17:25:00* Test Item Value Reference Range Interpretation Comments Aspartate Amino Transf (AST/SGOT) (test code = Aspartate Amino Transf (AST/SGOT)) 13 5-34 [facility] CenterAlanine Aminotransferase (ALT/SGPT) 2018-12-27 17:25:00* Test Item Value Reference Range Interpretation Comments Alanine Aminotransferase (ALT/SGPT) (test code = 1742-6) 12 0-55 [facility] CenterTotal Onawhvu1201-55-79 17:25:00* Test Item Value Reference Range Interpretation Comments Total Protein (test code = 2885-2) 5.5 6.5-8.1 L [facility] CenterAlbumin2019-09-11 17:25:00* Test Item Value Reference Range Interpretation Comments Albumin (test code = 1751-7) 2.9 3.5-5.0 L [facility] CenterGlobulin2019-09-11 17:25:00* Test Item Value Reference Range Interpretation Comments Globulin (test code = 09195-2) 2.6 2.3-3.5 [facility] CenterAlbumin/Globulin Owxvg3906-84-38 17:25:00 * Test Item Value Reference Range Interpretation Comments Albumin/Globulin Ratio (test code = 1759-0) 1.1 0.8-2.0 [facility] CenterAlkaline Byqyyrdhnci8798-69-68 17:25:00* Test Item Value Reference Range Interpretation Comments Alkaline Phosphatase (test code = 6768-6) 35 40-150 L [facility] CenterProthrombin Zada9414-72-09 17:11:00* Test Item Value Reference Range Interpretation Comments Prothrombin Time (test code = 5902-2) 13.5 11.9-14.5 [facility] CenterProthromb Time International Ratio 2018-12-27 17:11:00* Test Item Value Reference Range Interpretation Comments Prothromb Time International Ratio (test code = 6301-6) 0.98 Oral Anticoagulant Therapy INR Values:1. Low Intensity Therapy 1.5 - 2.02 . Moderate Intensity Therapy 2.0 - 3.03. High Intensity Therapy(1) 2.5 - 3. 54. High Intensity Therapy(2) 3.0 - 4.05. Panic Value INR > 5.0 [facility] CenterActivated Partial Thromboplast Time 2018-12-27 17:11:00* Test Item Value Reference Range Interpretation Comments Activated Partial Thromboplast Time (test code = 19469-8) 26.9 23.8-35.5 [facility]
--- NOTE | 2020-02-21 23:56 | NUR ---
SPOKE TO MD MALHOTRA. NEW ORDERS RECEIVED.
[2020-02-22] VITALS (8 sets, daily range): BP systolic 131–166; BP diastolic 53–69
[2020-02-22] MEDS ORDERED: BISACODYL 5 MG TAB EC PO ONE (00:30)
[2020-02-22 00:37] LABS: BASOPHILS # (AUTO) 0.1 (0.0-0.1); BASOPHILS % 0.6 % (0.0-1.0); EOSINOPHILS # (AUTO) 0.1 (0.0-0.4); EOSINOPHILS % 1.1 % (0.0-6.0); HEMATOCRIT 25.4 % (34.2-44.1); HEMOGLOBIN 7.8 g/dL (12.0-16.0); LYMPHOCYTES # (AUTO) 1.4 (1.0-3.2); LYMPHOCYTES % 17.6 % (18.0-39.1); MEAN CORPUSCULAR HEMOGLOBIN 33.9 pg (28-32); MEAN CORPUSCULAR HGB CONC 30.7 g/dL (31-35); MEAN CORPUSCULAR VOLUME 110.4 fL (81-99); MONOCYTES # (AUTO) 0.6 (0.2-0.8); MONOCYTES % 7.2 % (4.4-11.3); NEUTROPHILS # (AUTO) 5.8 (2.1-6.9); PLATELET COUNT 278 x10e3/uL (140-360); RED CELL DISTRIBUTION WIDTH 14.8 % (11.7-14.4)
--- NOTE | 2020-02-22 02:32 | NUR ---
PATIENT C/O "LEAKING" TO R AC IV. SALINE FLUSH. IV PATENT AND NO OTHER SIGNS OR SYMPTOMS OF IV INFILTRATION. 22G IV TO L WRIST STARTED. SALINE FLUSH. CDI DRESSING APPLIED. TOLERATED WELL.
[2020-02-22] MEDS ORDERED: CITRATE OF MAGNESIA 300ML BOTTLE PO ONE ×2 (05:00→07:00)
[2020-02-22 05:35] LABS: BASOPHILS # (AUTO) 0.1 (0.0-0.1); BASOPHILS % 0.5 % (0.0-1.0); EOSINOPHILS # (AUTO) 0.1 (0.0-0.4); EOSINOPHILS % 0.6 % (0.0-6.0); HEMATOCRIT 25.1 % (34.2-44.1); HEMOGLOBIN 7.8 g/dL (12.0-16.0); LYMPHOCYTES % 9.8 % (18.0-39.1); MEAN CORPUSCULAR HEMOGLOBIN 34.2 pg (28-32); MEAN CORPUSCULAR HGB CONC 31.1 g/dL (31-35); MEAN CORPUSCULAR VOLUME 110.1 fL (81-99); MONOCYTES # (AUTO) 0.6 (0.2-0.8); MONOCYTES % 6.5 % (4.4-11.3); PLATELET COUNT 288 x10e3/uL (140-360); RED BLOOD COUNT 2.28 x10e6/uL (3.6-5.1); RED CELL DISTRIBUTION WIDTH 14.8 % (11.7-14.4)
[2020-02-22] MEDS: SODIUM CHLORIDE 0.9% 1000ML 1,000 ML IV SCH ×3 (06:00→21:17)
--- NOTE | 2020-02-22 06:26 | NUR ---
IM- progress note O/N see below ROS: no f/c/s/N/V/ALEJANDRO/cp/sob/skin rash/vision changes v/s; revd PE tired appearing anicteric ns1s2 mod bs soft nt nd skin dry Trace leg edema a&ox; howard labs/meds revd A/P: Melena- IV PPI GIB- IV PPI Internal hemorrhoids Diverticulosis Macrocytic anemia- check panel Obesity BMI 30 Hx carotid stent>1 yr ago- hold clopidogrel. SCD; IV PPI Dispo: 02-20 f/u GI; replace K - Control BP; check K; f/u endoscopy. Hb stable; Grupo Pérez MD, PhD.
[2020-02-22] MEDS ORDERED: PANTOPRAZOLE SO40 MG PO (06:28)
--- NOTE | 2020-02-22 07:36 | NUR ---
REPORT GIVEN TO DAYSHIFT NURSE. ALERT AND ORIENTED. RESTING AT BEDSIDE. NO SIGNS IV INFILTRATION. BED LOCKED AND IN LOW POSITION. CALL LIGHT WITHIN REACH.
[2020-02-22 08:04] LABS: ANION GAP 12.1 mmol/L (8-16); BLOOD UREA NITROGEN 8 mg/dL (7-26); BUN/CREATININE RATIO 11 (6-25); CARBON DIOXIDE 20 mmol/L (22-29); CHLORIDE 111 mmol/L (98-107); CREATININE, SERUM 0.72 mg/dL (0.57-1.11); EST GLOMERULAR FILTRATION RATE > 60 ML/MIN (60-); GLUCOSE 94 mg/dL (74-118); POTASSIUM 3.1 mmol/L (3.5-5.1); SODIUM 140 mmol/L (136-145)
--- NOTE | 2020-02-22 08:33 | NUR ---
JAVED letter delivered and explained to pt. She verbalized understanding. Copy to pt. Signed copy placed in chart.
[2020-02-22] MEDS: FERROUS SULFATE 325 MG TAB PO SCH (09:00)
[2020-02-22] MEDS: CYANOCOBALAMIN 1,000 MCG TAB PO SCH (09:00)
[2020-02-22] MEDS: FENOFIBRATE 130 MG PO SCH (09:00)
[2020-02-22] MEDS: CHOLECALCIFEROL 1,000 UNIT TAB PO SCH (09:00)
[2020-02-22] MEDS: PANTOPRAZOLE 40 MG 10ML VIAL IV SCH ×2 (09:59→20:00)
[2020-02-22] MEDS: AMLODIPINE BESYLATE 5 MG TAB PO SCH (10:02)
[2020-02-22] MEDS: LOSARTAN POTASSIUM 100 MG TAB PO SCH (10:02)
[2020-02-22] MEDS ORDERED: POTASSIUM CHLORIDE 20MEQ/100ML 100 ML IV ONE (10:30)
[2020-02-22 12:39] LABS: BASOPHILS % 0.4 % (0.0-1.0); EOSINOPHILS # (AUTO) 0.1 (0.0-0.4); EOSINOPHILS % 1.3 % (0.0-6.0); HEMATOCRIT 29.4 % (34.2-44.1); HEMOGLOBIN 8.9 g/dL (12.0-16.0); LYMPHOCYTES # (AUTO) 1.4 (1.0-3.2); LYMPHOCYTES % 15.8 % (18.0-39.1); MEAN CORPUSCULAR HEMOGLOBIN 33.7 pg (28-32); MEAN CORPUSCULAR HGB CONC 30.3 g/dL (31-35); MEAN CORPUSCULAR VOLUME 111.4 fL (81-99); MONOCYTES # (AUTO) 0.6 (0.2-0.8); MONOCYTES % 6.7 % (4.4-11.3); NEUTROPHILS # (AUTO) 6.8 (2.1-6.9); NEUTROPHILS % 75.4 % (38.7-80.0); PLATELET COUNT 337 x10e3/uL (140-360); RED BLOOD COUNT 2.64 x10e6/uL (3.6-5.1); RED CELL DISTRIBUTION WIDTH 14.7 % (11.7-14.4)
[2020-02-22] MEDS ORDERED: FENTANYL CITRATE/PF 100MCG/2 ML INJ ONE (13:23)
[2020-02-22] MEDS ORDERED: SODIUM CHLORIDE 0.9% 250ML 250 ML ONE (13:34)
[2020-02-22] MEDS ORDERED: PROPOFOL IV EMULSION 10 MG/ML 20 ML VIAL ONE (14:09)
[2020-02-22] MEDS ORDERED: LIDOCAINE HCL 2% LOCAL INJ 5 ML SDV VIAL INJ ONE (14:09)
[2020-02-22] MEDS: MESALAMINE 500 MG CAPCR PO SCH (20:00)
[2020-02-22 21:01] LABS: BASOPHILS % 0.5 % (0.0-1.0); EOSINOPHILS # (AUTO) 0.1 (0.0-0.4); EOSINOPHILS % 1.3 % (0.0-6.0); HEMATOCRIT 25.7 % (34.2-44.1); HEMOGLOBIN 7.8 g/dL (12.0-16.0); LYMPHOCYTES # (AUTO) 1.2 (1.0-3.2); LYMPHOCYTES % 14.8 % (18.0-39.1); MEAN CORPUSCULAR HEMOGLOBIN 33.6 pg (28-32); MEAN CORPUSCULAR HGB CONC 30.4 g/dL (31-35); MEAN CORPUSCULAR VOLUME 110.8 fL (81-99); MONOCYTES # (AUTO) 0.6 (0.2-0.8); MONOCYTES % 6.9 % (4.4-11.3); NEUTROPHILS # (AUTO) 6.3 (2.1-6.9); PLATELET COUNT 278 x10e3/uL (140-360); RED BLOOD COUNT 2.32 x10e6/uL (3.6-5.1); RED CELL DISTRIBUTION WIDTH 14.9 % (11.7-14.4)
[2020-02-23] VITALS: BP 119/62
--- NOTE | 2020-02-23 00:14 | NUR ---
SPOKE TO MD MALHOTRA. OKAY TO STOP Q6 CBC. NEW ORDERS FOR CBC IN AM.
[2020-02-23 04:00] VITALS: BP 113/40
[2020-02-23 06:45] LABS: BASOPHILS % 0.6 % (0.0-1.0); EOSINOPHILS # (AUTO) 0.2 (0.0-0.4); EOSINOPHILS % 2.3 % (0.0-6.0); HEMATOCRIT 25.1 % (34.2-44.1); HEMOGLOBIN 7.6 g/dL (12.0-16.0); LYMPHOCYTES # (AUTO) 1.1 (1.0-3.2); LYMPHOCYTES % 16.1 % (18.0-39.1); MEAN CORPUSCULAR HEMOGLOBIN 33.2 pg (28-32); MEAN CORPUSCULAR HGB CONC 30.3 g/dL (31-35); MEAN CORPUSCULAR VOLUME 109.6 fL (81-99); MONOCYTES # (AUTO) 0.6 (0.2-0.8); MONOCYTES % 8.7 % (4.4-11.3); NEUTROPHILS % 71.9 % (38.7-80.0); PLATELET COUNT 267 x10e3/uL (140-360); RED BLOOD COUNT 2.29 x10e6/uL (3.6-5.1); RED CELL DISTRIBUTION WIDTH 14.8 % (11.7-14.4)
--- NOTE | 2020-02-23 07:20 | NUR ---
REPORT GIVEN TO DAYSHIFT NURSE. ALERT AND ORIENTED. RESTING IN BED. NO SIGNS IV INFILTRATION. BED LOCKED AND IN LOW POSITION. CALL LIGHT WITHIN REACH.
[2020-02-23 07:26] LABS: ANION GAP 10.8 mmol/L (8-16); BLOOD UREA NITROGEN 5 mg/dL (7-26); BUN/CREATININE RATIO 7 (6-25); CALCIUM 7.6 mg/dL (8.4-10.2); CARBON DIOXIDE 21 mmol/L (22-29); CHLORIDE 112 mmol/L (98-107); CREATININE, SERUM 0.68 mg/dL (0.57-1.11); EST GLOMERULAR FILTRATION RATE > 60 ML/MIN (60-); GLUCOSE 68 mg/dL (74-118); SODIUM 141 mmol/L (136-145)
[2020-02-23 07:29] LABS: POTASSIUM 2.8 mmol/L (3.5-5.1)
[2020-02-23] MEDS ORDERED: POTASSIUM CHLORIDE 20 MEQ TAB CR PO STA (07:30)
[2020-02-23] MEDS ORDERED: POTASSIUM CHLORIDE 20MEQ/100ML 100 ML IV STA (07:30)
--- NOTE | 2020-02-23 07:32 | NUR ---
IM- progress note O/N see below ROS: no f/c/s/N/V/ALEJANDRO/cp/sob/skin rash/vision changes v/s; revd PE tired appearing anicteric ns1s2 mod bs soft nt nd skin dry Trace leg edema a&ox; howard labs/meds revd A/P: Melena- IV PPI GIB- IV PPI Internal hemorrhoids Diverticulosis Macrocytic anemia- check panel Obesity BMI 30 Hx carotid stent>1 yr ago- hold clopidogrel. SCD; IV PPI Dispo: 02-20 f/u GI; replace K 02-21 Control BP; check K; f/u endoscopy. 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
--- NOTE | 2020-02-23 07:33 | NUR ---
Dr. Pérez arrived; informed him of critical Potassium this morning of 2.8; Dr. Pérez states he will place orders for replacement and pt can go home after lunch; will recheck Potassium at 1200.
[2020-02-23] MEDS: SODIUM CHLORIDE 0.9% 1000ML 1,000 ML IV SCH (08:13)
[2020-02-23 08:38] VITALS: BP 113/40
[2020-02-23 08:42] VITALS: BP 133/59
[2020-02-23] MEDS: FERROUS SULFATE 325 MG TAB PO SCH (09:00)
[2020-02-23] MEDS: FENOFIBRATE 130 MG PO SCH (09:00)
[2020-02-23] MEDS: PANTOPRAZOLE 40 MG 10ML VIAL IV SCH (09:49)
[2020-02-23] MEDS: LOSARTAN POTASSIUM 100 MG TAB PO SCH (09:50)
[2020-02-23] MEDS: AMLODIPINE BESYLATE 5 MG TAB PO SCH (09:51)
[2020-02-23] MEDS: MESALAMINE 500 MG CAPCR PO SCH (09:51)
[2020-02-23] MEDS: CHOLECALCIFEROL 1,000 UNIT TAB PO SCH (09:52)
[2020-02-23] MEDS: CYANOCOBALAMIN 1,000 MCG TAB PO SCH (09:52)
[2020-02-23 12:48] VITALS: BP 151/62
[2020-02-23 12:51] LABS: MAGNESIUM 1.9 MG/DL (1.3-2.1); POTASSIUM 3.3 mmol/L (3.5-5.1)
[2020-02-23] MEDS ORDERED: POTASSIUM CHLORIDE 10MEQ EA PO ONE (14:30)
== END 2020-02-23 15:30 | disposition home or self-care (01) ==
LOC: ER 12:40 → ERHOLD 13:55 → MED/SURG 16:42
PROVIDERS: ADMIT Internal Medicine; ATTEND Internal Medicine
DX: K29.70 Gastritis, unspecified, without bleeding (principal); K44.9 Diaphragmatic hernia without obstruction or gangrene; K52.9 Noninfective gastroenteritis and colitis, unspecified; K56.699 Other intestinal obstruction unspecified as to partial versus complete obstruction; K57.30 Diverticulosis of large intestine without perforation or abscess without bleeding; I10 Essential (primary) hypertension; J44.9 Chronic obstructive pulmonary disease, unspecified; D64.9 Anemia, unspecified; E78.5 Hyperlipidemia, unspecified; Z90.49 Acquired absence of other specified parts of digestive tract; I25.10 Atherosclerotic heart disease of native coronary artery without angina pectoris; F41.9 Anxiety disorder, unspecified; K64.8 Other hemorrhoids; D53.9 Nutritional anemia, unspecified; E66.9 Obesity, unspecified; Z68.30 Body mass index [BMI] 30.0-30.9, adult; Z95.828 Presence of other vascular implants and grafts; E87.6 Hypokalemia; Z20.828 Contact with and (suspected) exposure to other viral communicable diseases
CPT/HCPCS: 36415 ×4; 43239; 45380; 45386; 74174; 78278; 80048 ×2; 80053 ×2; 80061; 81001; 82270; 82607; 82728; 83036; 83540; 83735 ×2; 84132; 84443; 84466; 85025 ×4; 85610; 85730; 86850; 86900; 88305 ×2; 88312; 99284; A9512 ×2; C9113 ×4; G0378 ×4; J2001 ×2; J2704 ×2; J3010 ×2; J3480 ×3; J7030 ×4; J7050 ×2; Q9967; U0002; 44405; 45378

== ENCOUNTER 2022-05-03 10:56 | Inpatient (IN) | payer MEDICARE, OTHER ==
[~2022-05-03] VITALS: Ht 154.9 cm; Wt 81.6 kg
[2022-05-03 11:31] LABS: BASOPHILS # (AUTO) 0.1 (0.0-0.1); BASOPHILS % 0.9 % (0.0-1.0); EOSINOPHILS # (AUTO) 0.1 (0.0-0.4); EOSINOPHILS % 1.5 % (0.0-6.0); LYMPHOCYTES % 18.4 % (18.0-39.1); MEAN CORPUSCULAR HEMOGLOBIN 36.6 pg (28-32); MEAN CORPUSCULAR HGB CONC 29.8 g/dL (31-35); MONOCYTES # (AUTO) 0.4 (0.2-0.8); MONOCYTES % 6.7 % (4.4-11.3); NEUTROPHILS # (AUTO) 3.9 (2.1-6.9); NEUTROPHILS % 72.1 % (38.7-80.0); PLATELET COUNT 241 x10e3/uL (140-360); RED BLOOD COUNT 1.61 x10e6/uL (3.6-5.1); RED CELL DISTRIBUTION WIDTH 15.8 % (11.7-14.4)
[2022-05-03 11:43] LABS: INR 1.04; PROTHROMBIN TIME 13.8 seconds (11.9-14.5)
[2022-05-03 11:44] LABS: PARTIAL THROMBOPLASTIN TIME 28.2 seconds (23.8-35.5)
[2022-05-03 11:47] LABS: HEMATOCRIT 19.8 % (34.2-44.1); HEMOGLOBIN 5.9 g/dL (12.0-16.0)
[2022-05-03 11:57] LABS: ALBUMIN 3.3 g/dL (3.5-5.0); ANION GAP 15.7 mmol/L (8-16); CALCIUM 8.3 mg/dL (8.4-10.2); CREATININE, SERUM 0.78 mg/dL (0.57-1.11); MAGNESIUM 1.7 MG/DL (1.3-2.1); POTASSIUM 3.7 mmol/L (3.5-5.1)
[2022-05-03] MEDS ORDERED: ONDANSETRON HCL INJ 2MG/ML 2ML 2 MG/ML VIAL IV PRN ×2 (12:00→17:45)
[2022-05-03] MEDS ORDERED: SODIUM CHLORIDE 0.9% 250ML 250 ML IV ONE (12:00)
[2022-05-03 13:59] LABS: CLARITY,URINE CLOUDY (CLEAR); COLOR,URINE YELLOW (YELLOW); KETONES,URINE NEGATIVE (NEGATIVE); LEUKOCYTE ESTERASE ,URINE 1+ (NEGATIVE); NITRITE,URINE NEGATIVE (NEGATIVE); PROTEIN,URINE DIPSTICK NEGATIVE (NEGATIVE); URINE UROBILINOGEN 0.2 mg/dL (0.2 - 1)
[2022-05-03] MEDS ORDERED: XYZAL5 MG (14:21)
[2022-05-03] MEDS ORDERED: ALPRAZOLAM0.25 M1 PO (14:21)
[2022-05-03] MEDS ORDERED: FUROSEMIDE40 MG PO (14:21)
[2022-05-03] MEDS ORDERED: POTASSIUM CHLO20 ME1 PO (14:21)
[2022-05-03] MEDS ORDERED: ASPIRIN81 MG PO (14:21)
[2022-05-03] MEDS ORDERED: NEXIUM40 MG PO (14:21)
[2022-05-03 14:23] LABS: BACTERIA,URINE MANY /HPF; WBC,URINE (MAN) 21-50 /HPF (0-5)
[2022-05-03 14:24] LABS: EPITHELIAL CELLS,URINE MANY /LPF; TRANSITIONAL EPI CELLS,URINE FEW
[2022-05-03] MEDS ORDERED: ATORVASTATIN CA40 MG (14:24)
[2022-05-03] MEDS ORDERED: LEVOTHYROXINE25 MCG (14:24)
[2022-05-03] MEDS ORDERED: LEVOCETIRIZINE D5 MG (14:24)
[2022-05-03] MEDS ORDERED: ALENDRONATE SOD70 MG (14:24)
[2022-05-03] MEDS ORDERED: LISINOPRIL5 MG (14:24)
[2022-05-03] MEDS ORDERED: SODIUM CHLORIDE 0.9% 250ML 250 ML ONE ×2 (15:21→20:28)
[2022-05-03 15:30] VITALS: BP 115/53
[2022-05-03] MEDS ORDERED: ALPRAZOLAM 0.25 MG TAB PO PRN (17:45)
[2022-05-03] MEDS ORDERED: ACETAMINOPHEN 325 MG TAB PO PRN (17:45)
[2022-05-03 18:07] LABS: CHOL/HDL RATIO 2.7 (3.0-3.6)
[2022-05-03] MEDS ORDERED: IOPAMIDOL 370 MG/ML 100 ML INFUS..BTL INJ ONE (18:11)
[2022-05-03] MEDS ORDERED: SODIUM CHLORIDE 0.9% 100 ML ONE (18:11)
[2022-05-03 18:27] LABS: FERRITIN 31.25 ng/mL (4.63-204.00)
[2022-05-03 19:38] LABS: CREATINE KINASE MB 1.8 ng/mL (0-5.0)
[2022-05-03 20:00] VITALS: BP 113/47
[2022-05-03] MEDS: MELATONIN 3 MG TAB PO PRN (20:33)
[2022-05-03] MEDS: FUROSEMIDE INJ 10 MG/ML 2 ML VIAL IV SCH (20:34)
[2022-05-04] MEDS: FUROSEMIDE INJ 10 MG/ML 2 ML VIAL IV SCH (00:50)
[2022-05-04 04:54] LABS: BASOPHILS # (AUTO) 0.1 (0.0-0.1); BASOPHILS % 1.3 % (0.0-1.0); EOSINOPHILS # (AUTO) 0.1 (0.0-0.4); HEMOGLOBIN 9.4 g/dL (12.0-16.0); LYMPHOCYTES # (AUTO) 1.4 (1.0-3.2); LYMPHOCYTES % 30.9 % (18.0-39.1); MEAN CORPUSCULAR HEMOGLOBIN 32.5 pg (28-32); MEAN CORPUSCULAR HGB CONC 32.4 g/dL (31-35); MEAN CORPUSCULAR VOLUME 100.3 fL (81-99); MONOCYTES # (AUTO) 0.5 (0.2-0.8); MONOCYTES % 9.8 % (4.4-11.3); NEUTROPHILS # (AUTO) 2.6 (2.1-6.9); NEUTROPHILS % 55.8 % (38.7-80.0); PLATELET COUNT 211 x10e3/uL (140-360); RED BLOOD COUNT 2.89 x10e6/uL (3.6-5.1); RED CELL DISTRIBUTION WIDTH 23.6 % (11.7-14.4)
[2022-05-04 05:19] LABS: ALBUMIN 3.1 g/dL (3.5-5.0); ANION GAP 14.6 mmol/L (8-16); CALCIUM 8.4 mg/dL (8.4-10.2); CHOL/HDL RATIO 2.9 (3.0-3.6); CREATININE, SERUM 0.78 mg/dL (0.57-1.11); POTASSIUM 3.6 mmol/L (3.5-5.1)
[2022-05-04] MEDS: LEVOTHYROXINE SODIUM 25 MCG TABLET PO SCH (05:48)
[2022-05-04 06:08] LABS: CREATINE KINASE MB 1.5 ng/mL (0-5.0)
[2022-05-04 07:50] LABS: EOSINOPHILS % (MANUAL) 2 % (0-7); LYMPHOCYTES % (MANUAL) 24 % (19-48); MONOCYTES % (MANUAL) 4 % (3.4-9.0); NEUTROPHILS % (MANUAL) 69 % (40-74)
[2022-05-04 07:51] LABS: OVALOCYTES FEW; PLATELET ESTIMATE ADEQUATE; PLATELET MORPHOLOGY COMMENT NORMAL; RBC MORPHOLOGY COMMENT ABNORMAL
[2022-05-04 07:53] LABS: ANISOCYTOSIS MODERATE
[2022-05-04 08:15] VITALS: BP 117/56
[2022-05-04] MEDS: CYANOCOBALAMIN 1,000 MCG TAB PO SCH (08:39)
[2022-05-04] MEDS ORDERED: SODIUM CHLORIDE 0.9% 500ML 0 ML ONE (11:41)
[2022-05-04] MEDS ORDERED: HEPARIN SOD (PORCINE) 1000 UNIT/ML SDV ONE (11:44)
[2022-05-04 12:00] VITALS: BP 121/62
[2022-05-04 14:44] VITALS: BP 121/62
[2022-05-04] MEDS: MELATONIN 3 MG TAB PO PRN (20:14)
[2022-05-05] VITALS (9 sets, daily range): BP systolic 115–148; BP diastolic 55–66
[2022-05-05] MEDS: LEVOTHYROXINE SODIUM 25 MCG TABLET PO SCH (05:17)
[2022-05-05 09:19] LABS: BASOPHILS # (AUTO) 0.1 (0.0-0.1); EOSINOPHILS # (AUTO) 0.1 (0.0-0.4); EOSINOPHILS % 2.6 % (0.0-6.0); HEMATOCRIT 33.4 % (34.2-44.1); MEAN CORPUSCULAR HEMOGLOBIN 32.6 pg (28-32); MEAN CORPUSCULAR HGB CONC 29.9 g/dL (31-35); MEAN CORPUSCULAR VOLUME 108.8 fL (81-99); MONOCYTES # (AUTO) 0.5 (0.2-0.8); MONOCYTES % 9.8 % (4.4-11.3); NEUTROPHILS # (AUTO) 3.4 (2.1-6.9); NEUTROPHILS % 66.6 % (38.7-80.0); PLATELET COUNT 222 x10e3/uL (140-360); RED BLOOD COUNT 3.07 x10e6/uL (3.6-5.1); RED CELL DISTRIBUTION WIDTH 22.7 % (11.7-14.4)
[2022-05-05] MEDS: CYANOCOBALAMIN 1,000 MCG TAB PO SCH (09:21)
[2022-05-05 10:00] LABS: EOSINOPHILS % (MANUAL) 2 % (0-7); LYMPHOCYTES % (MANUAL) 19 % (19-48); MONOCYTES % (MANUAL) 7 % (3.4-9.0); NEUTROPHILS % (MANUAL) 72 % (40-74)
[2022-05-05 10:01] LABS: ANISOCYTOSIS MODERATE; HYPOCHROMASIA MODERATE; OVALOCYTES FEW; PLATELET ESTIMATE ADEQUATE; PLATELET MORPHOLOGY COMMENT FEW LARGE; POLYCHROMASIA FEW; RBC MORPHOLOGY COMMENT ABNORMAL
[2022-05-05] MEDS ORDERED: ONDANSETRON HCL 4 MG ORAL DISINTEGRATING TAB PO PRN (13:15)
[2022-05-05] MEDS ORDERED: ONDANSETRON HCL INJ 2MG/ML 2ML 2 MG/ML VIAL IV PRN (13:15)
[2022-05-05] MEDS ORDERED: METRONIDAZOLE 250 MG TAB PO SCH (14:00)
[2022-05-05] MEDS: METRONIDAZOLE 500 MG TAB PO SCH ×2 (14:45→20:52)
[2022-05-05] MEDS ORDERED: MAGNESIUM HYDROXIDE 30 ML UDC PO ONE (22:30)
[2022-05-06] VITALS: BP 148/51
[2022-05-06] MEDS: MELATONIN 3 MG TAB PO PRN (00:06)
[2022-05-06 04:57] LABS: HEMATOCRIT 28.6 % (34.2-44.1); HEMOGLOBIN 9.2 g/dL (12.0-16.0)
[2022-05-06] MEDS: LEVOTHYROXINE SODIUM 25 MCG TABLET PO SCH (05:22)
[2022-05-06] MEDS: METRONIDAZOLE 500 MG TAB PO SCH (05:22)
[2022-05-06 06:15] VITALS: BP 113/40
[2022-05-06 06:16] VITALS: BP 162/95
[2022-05-06 08:16] VITALS: BP 127/55
[2022-05-06 08:20] VITALS: BP 127/55
[2022-05-06] MEDS ORDERED: METRONIDAZOLE500 MG PO (08:25)
[2022-05-06] MEDS ORDERED: PANTOPRAZOLE SO40 MG PO (08:25)
[2022-05-06] MEDS: CYANOCOBALAMIN 1,000 MCG TAB PO SCH (09:42)
== END 2022-05-06 10:19 | disposition home or self-care (01) | DRG 378 ==
LOC: ER 11:04 → ERHOLD 12:12 → INTOOBSV 12:12 → MED/SURG 13:46 → OBSVTOIN 05-05 10:30
PROVIDERS: ADMIT Internal Medicine; ATTEND Internal Medicine
DX: K55.21 Angiodysplasia of colon with hemorrhage (principal); K56.699 Other intestinal obstruction unspecified as to partial versus complete obstruction; K57.91 Diverticulosis of intestine, part unspecified, without perforation or abscess with bleeding; I48.0 Paroxysmal atrial fibrillation; Z79.01 Long term (current) use of anticoagulants; E66.09 Other obesity due to excess calories; Z68.34 Body mass index [BMI] 34.0-34.9, adult; K52.9 Noninfective gastroenteritis and colitis, unspecified; D50.0 Iron deficiency anemia secondary to blood loss (chronic); J44.9 Chronic obstructive pulmonary disease, unspecified; I25.10 Atherosclerotic heart disease of native coronary artery without angina pectoris; I10 Essential (primary) hypertension; Z95.1 Presence of aortocoronary bypass graft; E78.5 Hyperlipidemia, unspecified; Z20.822 Contact with and (suspected) exposure to COVID-19
CPT/HCPCS: 36415; 71045; 74177; 78278; 80053; 80061; 81001; 82270; 82550; 82553; 82607; 82728; 83036; 83540; 83735; 84466; 84484; 85014; 85018; 85025; 85610; 85730; 86140; 86256; 86671; 86850; 86900; 86920; 87086; 93005; 93306; 94799; 99252; 99284; A9512; G0378; J1644; J1940; J7040; J7050; P9016; Q9967

== ENCOUNTER 2023-05-08 13:58 | Emergency (ER) | payer MEDICARE, OTHER ==
[~2023-05-08] VITALS: Ht 154.9 cm; Wt 81.6 kg
[~2023-05-08 13:58] MED LIST changes: +ALENDRONATE SOD70 MG; +ALPRAZOLAM0.25 M1 PO; +ASPIRIN81 MG PO; +ATORVASTATIN CA40 MG; +FUROSEMIDE40 MG PO; +LEVOCETIRIZINE D5 MG; +LEVOTHYROXINE25 MCG; +LISINOPRIL5 MG; +METRONIDAZOLE500 MG PO; +NEXIUM40 MG PO; +POTASSIUM CHLO20 ME1 PO; +XYZAL5 MG
[2023-05-08 15:30] VITALS: BP 109/66; PULSE 72; RESP 18; O2SAT 100
== END 2023-05-08 15:31 | disposition home or self-care (01) ==
LOC: ER 14:06
DX: R53.1 Weakness (principal); I10 Essential (primary) hypertension; E78.5 Hyperlipidemia, unspecified; I48.91 Unspecified atrial fibrillation; D64.9 Anemia, unspecified; K21.9 Gastro-esophageal reflux disease without esophagitis; F41.9 Anxiety disorder, unspecified; I25.2 Old myocardial infarction; Z95.1 Presence of aortocoronary bypass graft; Z87.19 Personal history of other diseases of the digestive system
CPT/HCPCS: 99283